=== PATIENT | male | born 1955 | race Caucasian/White ===

== ENCOUNTER → 2016-03-20 | Outpatient (CLI) | payer MEDICARE | LOC: M WUC 13:47 | PROVIDERS: ATTEND Urology | DX: C61 Malignant neoplasm of prostate (principal) ==

== ENCOUNTER → 2016-06-19 | Outpatient (CLI) | payer MEDICARE ==
[2016-06-19 13:34] LABS: MEAN CORPUSCULAR HEMOGLOBIN 28.5 pg (27.0-33.0); MEAN CORPUSCULAR HGB CONC 32.2 g/dl (32.0-36.5); MEAN CORPUSCULAR VOLUME 88.6 fl (80.0-96.0); RED CELL DISTRIBUTION WIDTH 12.8 % (11.5-14.5); WHITE BLOOD COUNT 6.2 K/mm3 (4.0-10.0)
[2016-06-19 14:09] LABS: ALBUMIN/GLOBULIN RATIO 1.25 (1.00-1.93); ALKALINE PHOSPHATASE 84 U/L (45-117); ALT/SGPT 18 U/L (12-78); ANION GAP 3 MEQ/L (8-16); AST/SGOT 20 U/L (15-37); BILIRUBIN,TOTAL 0.4 MG/DL (0.2-1.0); BLOOD UREA NITROGEN 16 MG/DL (7-18); CALCIUM LEVEL 8.9 MG/DL (8.8-10.2); CARBON DIOXIDE LEVEL 33 MEQ/L (21-32); CHLORIDE LEVEL 103 MEQ/L (98-107); CHOLESTEROL LEVEL 189 MG/DL (<200); CREATININE FOR GFR 1.12 MG/DL (0.70-1.30); GLOMERULAR FILTRATION RATE > 60.0 (>49); GLUCOSE, FASTING 90 MG/DL (80-110); POTASSIUM SERUM 4.3 MEQ/L (3.5-5.1); SODIUM LEVEL 139 MEQ/L (136-145); TOTAL PROTEIN 7.2 GM/DL (6.4-8.2); TRIGLYCERIDES LEVEL 146 MG/DL (<150)
== END ==
LOC: M WUC 09:29
PROVIDERS: ATTEND Family Medicine
DX: G31.83 Neurocognitive disorder with Lewy bodies (principal); E78.2 Mixed hyperlipidemia

== ENCOUNTER 2016-10-08 15:22 | Inpatient (IN) | payer MEDICARE, MEDICAID ==
[~2016-10-08] VITALS: Ht 188 cm; Wt 73.1 kg
[2016-10-08] MEDS ORDERED: CARV3.12 (15:35)
[2016-10-08] MEDS ORDERED: MEMA1TAB2 (15:35)
[2016-10-08] MEDS ORDERED: QUET1TAB8 (15:35)
[2016-10-08] MEDS ORDERED: PRAV40TA2 (15:35)
[2016-10-08] MEDS ORDERED: CLOP75TA2 (15:35)
[2016-10-08] MEDS ORDERED: LAMO100T (15:35)
[2016-10-08] MEDS ORDERED: ARIP1TAB4 (15:35)
[2016-10-08] MEDS ORDERED: MIRT45TA (15:35)
[2016-10-08] MEDS ORDERED: DONEPEZIL (15:35)
[2016-10-08 16:25] LABS: MEAN CORPUSCULAR HEMOGLOBIN 30.6 pg (27.0-33.0); MEAN CORPUSCULAR HGB CONC 34.7 g/dl (32.0-36.5); MEAN CORPUSCULAR VOLUME 88.1 fl (80.0-96.0); RED CELL DISTRIBUTION WIDTH 12.9 % (11.5-14.5); WHITE BLOOD COUNT 6.9 K/mm3 (4.0-10.0)
[2016-10-08 16:53] LABS: ALBUMIN 4.1 GM/DL (3.2-5.2); ALBUMIN/GLOBULIN RATIO 1.46 (1.00-1.93); ALKALINE PHOSPHATASE 73 U/L (45-117); ALT/SGPT 17 U/L (12-78); ANION GAP 8 MEQ/L (8-16); AST/SGOT 14 U/L (15-37); BILIRUBIN,DIRECT < 0.1 MG/DL (0.0-0.2); BILIRUBIN,TOTAL 0.4 MG/DL (0.2-1.0); BLOOD UREA NITROGEN 17 MG/DL (7-18); CARBON DIOXIDE LEVEL 31 MEQ/L (21-32); CHLORIDE LEVEL 105 MEQ/L (98-107); GLOMERULAR FILTRATION RATE > 60.0 (>49); GLUCOSE, FASTING 116 MG/DL (80-110); POTASSIUM SERUM 4.1 MEQ/L (3.5-5.1); SODIUM LEVEL 144 MEQ/L (136-145); TOTAL PROTEIN 6.9 GM/DL (6.4-8.2)
--- NOTE | 2016-10-08 18:16 | ECGEPIP ---
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
[2016-10-08] MEDS ORDERED: NAME10TA PO (18:49)
[2016-10-08] MEDS ORDERED: MIRT45TA PO (18:49)
[2016-10-08] MEDS ORDERED: ASPI81TA24 PO (18:49)
[2016-10-08] MEDS ORDERED: PRAV40TA2 PO (18:49)
[2016-10-08] MEDS ORDERED: VITMTA PO (18:49)
[2016-10-08] MEDS ORDERED: ABIL1TAB13 PO (18:49)
[2016-10-08] MEDS ORDERED: DONETAB6 PO (18:49)
[2016-10-08] MEDS ORDERED: LAMI1TAB7 PO (18:49)
[2016-10-08] MEDS ORDERED: SERO1TAB PO (18:49)
[2016-10-08] MEDS ORDERED: CARV3.12 PO (18:49)
[2016-10-08] MEDS ORDERED: PLAV1TAB2 PO (18:49)
[2016-10-08 23:55] VITALS: BP 137/82
[2016-10-09] MEDS: DONEPEZIL 5 MG TAB PO SCH ×2 (00:59→20:41)
[2016-10-09] MEDS: MIRTAZAPINE 15 MG TAB PO SCH ×2 (00:59→20:42)
[2016-10-09] MEDS: PRAVASTATIN 20 MG TAB PO SCH ×2 (01:00→20:44)
[2016-10-09] MEDS: lamoTRIgine 100MG TAB PO SCH ×3 (01:00→20:44)
[2016-10-09] MEDS: MEMANTINE 5MG TABLET (NAMENDA) PO SCH ×3 (01:00→20:42)
[2016-10-09] MEDS: CLOPIDOGREL 75 MG TAB PO SCH ×2 (01:01→20:44)
[2016-10-09] MEDS: CARVedilol 3.125 MG TAB PO SCH ×3 (01:01→20:44)
[2016-10-09] MEDS: QUEtiapine FUMARATE 100 MG TAB PO SCH ×2 (01:02→20:42)
[2016-10-09] MEDS: ARIPiprazole 2 MG TAB PO SCH ×2 (01:18→20:41)
--- NOTE | 2016-10-09 06:43 | REP ---
CHEST X-RAY PA AND LATERAL: 10/08/2016. Comparison: Portable chest 08/26/2014, 02/12/2011. Clinical history: Altered mental status. Findings. There is a dextrorotatory curve of the thoracic spine. The lungs are well inflated without infiltrate or effusion. No dense consolidation or parenchymal mass. Some minor apical pleuroparenchymal scarring on the right. Heart not enlarged. No vascular redistribution or edema. The aorta is tortuous following the curve of the thoracic spine but without aneurysm. Airway intact. Bones without acute compression deformity of destructive lesion suggested. No free air. Impression: 1. Dextrorotatory curvature of the spine without acute cardiopulmonary change. Signed by Alirio Palmer MD 10/09/2016 07:57 A
[2016-10-09] MEDS: MULTIVITAMINS/MINERALS THERAP 1 TAB PO SCH (09:05)
[2016-10-09] MEDS: ASPIRIN 81 MG ENTERIC TAB PO SCH (09:05)
--- NOTE | 2016-10-09 10:45 | REPUSA ---
CLINICAL HISTORY: AMS TECHNIQUE: Multiple axial CT images were obtained through the brain without IV contrast material. COMMENTS: There is normal configuration of sella turcica. There are no intra or extra-axial collections. There is no mass effect or midline shift. There is no evidence of hematoma formation. No hydrocephalus is p resent. The ventricles are symmetrical. No abnormal calcifications are present. There is diffuse age-appropriate cerebellar and cerebral atrophy with proportionally dilated ventricl es and cortical sulci. There are bilateral periventricular and subcortical white matter hypolucencies compatible with mild c hronic microvascular disease. Otherwise, no significant focal abnormalities are seen either in the posterior fossa or supratentoria l compartment. IMPRESSION: 1. Age-appropriate cerebellar and cerebral atrophy. 2. Mild chronic microvascular disease. 3. No evidence of acute intracranial pathology. Thank you for your kind referral of this patient.
[2016-10-09] MEDS: LORazepam 2 MG TAB PO PRN (16:02)
[2016-10-09 22:00] VITALS: BP 126/77
--- NOTE | 2016-10-10 00:35 | IPNPDOC ---
Subjective Date Seen The patient was seen on 10/09/16. Subjective Chief Complaint/HPI The patient is a 60-year-old male admitted with a reason for visit of E. Constitutional: Reports: Malaise, Denies: Fever ENT: Denies: Head Aches Pulmonary: Denies: Dyspnea, Cough Cardiovascular: Denies: Chest Pain Gastrointestinal: Denies: Nausea, Vomiting, Abdominal Pain, Diarrhea, Constipation Objective Physical Examination General Exam: Positive: Alert, No Acute Distress, Negative: Cooperative Eye Exam: Positive: Conjunctiva & lids normal, EOMI ENT Exam: Positive: Atraumatic Chest Exam: Positive: Clear to auscultation, Normal air movement Heart Exam: Positive: Rate Normal, Regular Rhythm Abdomen Exam: Positive: Normal bowel sounds Skin Exam: Negative: Breakdown Neuro Exam: Positive: Normal Gait, Normal Speech Psych Exam: Negative: Mental status NL, Mood NL Assessment /Plan Problems (1) Lewy body dementia with behavioral disturbance Status: Chronic Problem Text: Worsening behaviors at home lead to an unsafe home situation. Patient likely will require placement. Currently has Ativan ordered prn. (2) Hospital admission due to social situation Status: Acute Problem Text: Admitted for unsafe home situation. (3) Coronary artery disease Status: Chronic Problem Text: Continue home statin/Plavix/beta matt. Plan/VTE VTE Prophylaxis Ordered?: Yes VS, I&O, 24H, Fishbone Vital Signs/I&O Vital Signs Date Time Temp Pulse Resp B/P (MAP) Pulse Ox O2 Delivery O2 Flow Rate FiO2 10/09/16 22:00 97.5 68 18 126/77 (93) 98 Room Air I&O- Last 24 Hours up to 6 AM 10/10/16 06:00 Intake Total 120 ml Output Total 0 ml Balance 120 ml Laboratory Data Microbiology Microbiology 10/08/16 Urine Culture - Final, Complete DELL LIU DO Oct 10, 2016 00:35
[2016-10-10] MEDS: LORazepam 2 MG/ML VIAL (J2060) IM PRN ×2 (05:58→15:09)
[2016-10-10 06:00] VITALS: BP 115/65
[2016-10-10] MEDS: ASPIRIN 81 MG ENTERIC TAB PO SCH (10:26)
[2016-10-10] MEDS: CARVedilol 3.125 MG TAB PO SCH ×2 (10:26→21:43)
[2016-10-10] MEDS: lamoTRIgine 100MG TAB PO SCH ×2 (10:27→21:38)
[2016-10-10] MEDS: MEMANTINE 5MG TABLET (NAMENDA) PO SCH ×2 (10:27→21:39)
[2016-10-10] MEDS: MULTIVITAMINS/MINERALS THERAP 1 TAB PO SCH (10:27)
[2016-10-10] MEDS: ARIPiprazole 2 MG TAB PO SCH (21:37)
[2016-10-10] MEDS: CLOPIDOGREL 75 MG TAB PO SCH (21:37)
[2016-10-10] MEDS: MIRTAZAPINE 15 MG TAB PO SCH (21:37)
[2016-10-10] MEDS: QUEtiapine FUMARATE 100 MG TAB PO SCH (21:38)
[2016-10-10] MEDS: PRAVASTATIN 20 MG TAB PO SCH (21:39)
[2016-10-10] MEDS: DONEPEZIL 5 MG TAB PO SCH (21:39)
[2016-10-10 21:49] VITALS: BP 125/80
[2016-10-11] VITALS (11 sets, daily range): BP systolic 104–140; BP diastolic 59–79
[2016-10-11] MEDS: LORazepam 2 MG/ML VIAL (J2060) IM PRN (00:45)
--- NOTE | 2016-10-11 00:59 | IPNPDOC ---
Subjective Date Seen The patient was seen on 10/10/16. Subjective Chief Complaint/HPI The patient is a 60-year-old male admitted with a reason for visit of MHE. Events since last encounter Mr. Gomes was resting in bed when I saw him late this morning. His sitter states that he had been resting since she began her shift. He had been restless the night before, and received some of his prn medications. General: Reports: ROS Unobtainable Objective Physical Examination General Exam: Positive: Alert, No Acute Distress, Negative: Cooperative Eye Exam: Positive: Conjunctiva & lids normal, EOMI ENT Exam: Positive: Atraumatic Chest Exam: Positive: Clear to auscultation, Normal air movement Heart Exam: Positive: Rate Normal, Regular Rhythm Abdomen Exam: Positive: Normal bowel sounds Skin Exam: Negative: Breakdown Neuro Exam: Positive: Normal Gait, Normal Speech Psych Exam: Negative: Mental status NL, Mood NL Assessment /Plan Problems (1) Lewy body dementia with behavioral disturbance Status: Chronic Problem Text: Worsening behaviors at home lead to an unsafe home situation. Patient likely will require placement. Currently has Ativan ordered prn. (2) Hospital admission due to social situation Status: Acute Problem Text: Admitted for unsafe home situation. (3) Coronary artery disease Status: Chronic Problem Text: Continue home statin/Plavix/beta matt. Plan/VTE VTE Prophylaxis Ordered?: Yes VS, I&O, 24H, Fishbone Vital Signs/I&O Vital Signs Date Time Temp Pulse Resp B/P (MAP) Pulse Ox O2 Delivery O2 Flow Rate FiO2 10/10/16 21:49 98.9 80 16 125/80 (95) 96 Room Air I&O- Last 24 Hours up to 6 AM 10/11/16 05:59 Intake Total 390 ml Output Total 425 ml Balance -35 ml Laboratory Data Microbiology Microbiology 10/08/16 Urine Culture - Final, Complete DELL LIU DO Oct 11, 2016 00:59
[2016-10-11] MEDS ORDERED: HALOPERIDOL 5 MG/ML VIAL (J1630) As Ordered ONE (01:02)
[2016-10-11] MEDS ORDERED: HALOPERIDOL 5 MG/ML VIAL (J1630) IV STA (01:03)
[2016-10-11] MEDS: MULTIVITAMINS/MINERALS THERAP 1 TAB PO SCH (10:53)
[2016-10-11] MEDS: MEMANTINE 5MG TABLET (NAMENDA) PO SCH ×2 (10:53→22:55)
[2016-10-11] MEDS: lamoTRIgine 100MG TAB PO SCH ×2 (10:53→22:56)
[2016-10-11] MEDS: ASPIRIN 81 MG ENTERIC TAB PO SCH (10:54)
[2016-10-11] MEDS: CARVedilol 3.125 MG TAB PO SCH ×2 (10:54→22:58)
[2016-10-11] MEDS: LORazepam 2 MG TAB PO PRN (19:18)
[2016-10-11] MEDS: HALOPERIDOL 1 MG TAB PO SCH (22:52)
[2016-10-11] MEDS: DONEPEZIL 5 MG TAB PO SCH (22:53)
[2016-10-11] MEDS: MIRTAZAPINE 15 MG TAB PO SCH (22:54)
[2016-10-11] MEDS: ARIPiprazole 2 MG TAB PO SCH (22:55)
[2016-10-11] MEDS: PRAVASTATIN 20 MG TAB PO SCH (22:55)
[2016-10-11] MEDS: CLOPIDOGREL 75 MG TAB PO SCH (22:56)
[2016-10-12 00:32] VITALS: BP 120/71
--- NOTE | 2016-10-12 00:54 | IPNPDOC ---
Subjective Date Seen The patient was seen on 10/11/16. Subjective Chief Complaint/HPI The patient is a 60-year-old male admitted with a reason for visit of MHE. Events since last encounter Patient resting comfortably in bed at this time. Per report, he became agitated and aggressive last night, and required physical restraint from multiple individuals after his prn medications were insufficient to calm him. He responds to touch but does not fully wake at this time. General: Reports: ROS Unobtainable Objective Physical Examination General Exam: Positive: No Acute Distress, Negative: Alert, Cooperative Eye Exam: Positive: Conjunctiva & lids normal, EOMI ENT Exam: Positive: Atraumatic Chest Exam: Positive: Clear to auscultation, Normal air movement Heart Exam: Positive: Rate Normal, Regular Rhythm Abdomen Exam: Positive: Normal bowel sounds Skin Exam: Negative: Breakdown Neuro Exam: Positive: Normal Gait, Normal Speech Psych Exam: Negative: Mental status NL, Mood NL Assessment /Plan Problems (1) Lewy body dementia with behavioral disturbance Status: Chronic Problem Text: 10/11 -- as patient became fairly sedated after Haldol last night, will switch antipsychotic to PO Haldol at a lower dose. Worsening behaviors at home lead to an unsafe home situation. Patient likely will require placement. Currently has Ativan ordered prn. (2) Hospital admission due to social situation Status: Acute Problem Text: Admitted for unsafe home situation. (3) Coronary artery disease Status: Chronic Problem Text: Continue home statin/Plavix/beta matt. Plan/VTE VTE Prophylaxis Ordered?: Yes VS, I&O, 24H, Fishbone Vital Signs/I&O Vital Signs Date Time Temp Pulse Resp B/P (MAP) Pulse Ox O2 Delivery O2 Flow Rate FiO2 10/12/16 00:32 98.1 69 15 120/71 (87) 98 Room Air I&O- Last 24 Hours up to 6 AM 10/12/16 06:00 Intake Total 920 ml Output Total 475 ml Balance 445 ml Laboratory Data Microbiology Microbiology 10/08/16 Urine Culture - Final, Complete DELL LIU DO Oct 12, 2016 00:54
[2016-10-12 06:00] VITALS: BP 142/88
[2016-10-12] MEDS: lamoTRIgine 100MG TAB PO SCH ×2 (08:06→20:07)
[2016-10-12] MEDS: ASPIRIN 81 MG ENTERIC TAB PO SCH (08:06)
[2016-10-12] MEDS: CARVedilol 3.125 MG TAB PO SCH ×2 (08:06→20:07)
[2016-10-12] MEDS: MEMANTINE 5MG TABLET (NAMENDA) PO SCH ×2 (08:06→20:08)
[2016-10-12] MEDS: MULTIVITAMINS/MINERALS THERAP 1 TAB PO SCH (08:06)
[2016-10-12] MEDS: HALOPERIDOL 1 MG TAB PO SCH ×2 (08:07→20:08)
[2016-10-12] MEDS: ARIPiprazole 2 MG TAB PO SCH (20:06)
[2016-10-12] MEDS: MIRTAZAPINE 15 MG TAB PO SCH (20:07)
[2016-10-12] MEDS: DONEPEZIL 5 MG TAB PO SCH (20:07)
[2016-10-12] MEDS: PRAVASTATIN 20 MG TAB PO SCH (20:08)
[2016-10-12] MEDS: CLOPIDOGREL 75 MG TAB PO SCH (20:08)
--- NOTE | 2016-10-13 02:08 | IPNPDOC ---
Subjective Date Seen The patient was seen on 10/12/16. Subjective Chief Complaint/HPI The patient is a 60-year-old male admitted with a reason for visit of MHE. Events since last encounter Doing better on Haldol. Patient remains restless and wandering the halls, but no violent interactions. General: Reports: ROS Unobtainable Objective Physical Examination General Exam: Positive: No Acute Distress, Negative: Alert, Cooperative Eye Exam: Positive: Conjunctiva & lids normal, EOMI ENT Exam: Positive: Atraumatic Chest Exam: Positive: Clear to auscultation, Normal air movement Heart Exam: Positive: Rate Normal, Regular Rhythm Abdomen Exam: Positive: Normal bowel sounds Skin Exam: Negative: Breakdown Neuro Exam: Positive: Normal Gait, Normal Speech Psych Exam: Negative: Mental status NL, Mood NL Assessment /Plan Problems (1) Lewy body dementia with behavioral disturbance Status: Chronic Problem Text: 10/12 -- per report, fewer behavioral problems today. Patient does not want to remain clothed, but was not violent. Continue current medication regimen. 10/11 -- as patient became fairly sedated after Haldol last night, will switch antipsychotic to PO Haldol at a lower dose. Worsening behaviors at home lead to an unsafe home situation. Patient likely will require placement. Currently has Ativan ordered prn. (2) Hospital admission due to social situation Status: Acute Problem Text: Admitted for unsafe home situation. (3) Coronary artery disease Status: Chronic Problem Text: Continue home statin/Plavix/beta matt. Plan/VTE VTE Prophylaxis Ordered?: Yes VS, I&O, 24H, Fishbone Vital Signs/I&O Vital Signs Date Time Temp Pulse Resp B/P (MAP) Pulse Ox O2 Delivery O2 Flow Rate FiO2 10/12/16 20:07 82 125/79 10/12/16 06:00 98.6 17 97 Room Air I&O- Last 24 Hours up to 6 AM 10/13/16 06:00 Intake Total 1440 ml Output Total 0 ml Balance 1440 ml Laboratory Data Microbiology Microbiology 10/08/16 Urine Culture - Final, Complete DELL LIU DO Oct 13, 2016 02:08
[2016-10-13] MEDS: LORazepam 2 MG TAB PO PRN (04:38)
[2016-10-13 06:00] VITALS: BP 142/87
[2016-10-13] MEDS: HALOPERIDOL 1 MG TAB PO SCH ×2 (09:13→21:37)
[2016-10-13] MEDS: ASPIRIN 81 MG ENTERIC TAB PO SCH (09:13)
[2016-10-13] MEDS: MULTIVITAMINS/MINERALS THERAP 1 TAB PO SCH (09:13)
[2016-10-13] MEDS: MEMANTINE 5MG TABLET (NAMENDA) PO SCH ×2 (09:13→21:37)
[2016-10-13] MEDS: lamoTRIgine 100MG TAB PO SCH ×2 (09:13→21:37)
[2016-10-13] MEDS: CARVedilol 3.125 MG TAB PO SCH ×2 (09:14→21:45)
[2016-10-13] MEDS: CLOPIDOGREL 75 MG TAB PO SCH (21:37)
[2016-10-13] MEDS: ARIPiprazole 2 MG TAB PO SCH (21:37)
[2016-10-13] MEDS: PRAVASTATIN 20 MG TAB PO SCH (21:37)
[2016-10-13] MEDS: MIRTAZAPINE 15 MG TAB PO SCH (21:37)
[2016-10-13] MEDS: DONEPEZIL 5 MG TAB PO SCH (21:38)
[2016-10-14] MEDS: LORazepam 2 MG/ML VIAL (J2060) IM PRN ×2 (01:11→23:47)
[2016-10-14] MEDS: ACETAMINOPHEN TAB 650MG DOSE (2X325MG) PO PRN (05:47)
[2016-10-14 06:00] VITALS: BP 130/77
[2016-10-14] MEDS: ASPIRIN 81 MG ENTERIC TAB PO SCH (08:58)
[2016-10-14] MEDS: MEMANTINE 5MG TABLET (NAMENDA) PO SCH ×2 (08:59→20:11)
[2016-10-14] MEDS: HALOPERIDOL 1 MG TAB PO SCH ×2 (08:59→20:12)
[2016-10-14] MEDS: CARVedilol 3.125 MG TAB PO SCH ×2 (08:59→20:13)
[2016-10-14] MEDS: MULTIVITAMINS/MINERALS THERAP 1 TAB PO SCH (08:59)
[2016-10-14] MEDS: lamoTRIgine 100MG TAB PO SCH ×2 (08:59→20:12)
[2016-10-14] MEDS: ARIPiprazole 2 MG TAB PO SCH (20:11)
[2016-10-14] MEDS: CLOPIDOGREL 75 MG TAB PO SCH (20:11)
[2016-10-14] MEDS: PRAVASTATIN 20 MG TAB PO SCH (20:12)
[2016-10-14] MEDS: MIRTAZAPINE 15 MG TAB PO SCH (20:12)
[2016-10-14] MEDS: DONEPEZIL 5 MG TAB PO SCH (20:12)
[2016-10-14] MEDS: HALOPERIDOL 5 MG/ML VIAL (J1630) IM PRN (23:47)
[2016-10-15 06:00] VITALS: BP 116/62
[2016-10-15] MEDS: MEMANTINE 5MG TABLET (NAMENDA) PO SCH ×2 (10:03→20:02)
[2016-10-15] MEDS: CARVedilol 3.125 MG TAB PO SCH ×2 (10:03→20:04)
[2016-10-15] MEDS: MULTIVITAMINS/MINERALS THERAP 1 TAB PO SCH (10:04)
[2016-10-15] MEDS: HALOPERIDOL 1 MG TAB PO SCH ×2 (10:04→20:04)
[2016-10-15] MEDS: ASPIRIN 81 MG ENTERIC TAB PO SCH (10:04)
[2016-10-15] MEDS: lamoTRIgine 100MG TAB PO SCH ×2 (10:05→20:04)
[2016-10-15] MEDS: PRAVASTATIN 20 MG TAB PO SCH (20:01)
[2016-10-15] MEDS: CLOPIDOGREL 75 MG TAB PO SCH (20:02)
[2016-10-15] MEDS: DONEPEZIL 5 MG TAB PO SCH (20:02)
[2016-10-15] MEDS: ARIPiprazole 2 MG TAB PO SCH (20:04)
[2016-10-15] MEDS: MIRTAZAPINE 15 MG TAB PO SCH (20:04)
[2016-10-15] MEDS: LORazepam 2 MG/ML VIAL (J2060) IM PRN (22:26)
[2016-10-15] MEDS: HALOPERIDOL 5 MG/ML VIAL (J1630) IM PRN (22:35)
[2016-10-16 06:00] VITALS: BP 131/79
[2016-10-16] MEDS: lamoTRIgine 100MG TAB PO SCH ×2 (10:07→21:41)
[2016-10-16] MEDS: CARVedilol 3.125 MG TAB PO SCH ×2 (10:07→21:56)
[2016-10-16] MEDS: HALOPERIDOL 1 MG TAB PO SCH ×2 (10:07→21:43)
[2016-10-16] MEDS: MEMANTINE 5MG TABLET (NAMENDA) PO SCH ×2 (10:07→21:42)
[2016-10-16] MEDS: MULTIVITAMINS/MINERALS THERAP 1 TAB PO SCH (10:07)
[2016-10-16] MEDS: ASPIRIN 81 MG ENTERIC TAB PO SCH (10:08)
[2016-10-16] MEDS: LORazepam 2 MG TAB PO PRN (16:59)
[2016-10-16] MEDS: HALOPERIDOL 5 MG/ML VIAL (J1630) IM PRN ×2 (18:57→23:40)
[2016-10-16] MEDS: diphenhydrAMINE INJ 50MG/ML VIAL (J1200) IM PRN (19:12)
[2016-10-16] MEDS: MIRTAZAPINE 15 MG TAB PO SCH (21:41)
[2016-10-16] MEDS: DONEPEZIL 5 MG TAB PO SCH (21:42)
[2016-10-16] MEDS: PRAVASTATIN 20 MG TAB PO SCH (21:42)
[2016-10-16] MEDS: CLOPIDOGREL 75 MG TAB PO SCH (21:42)
[2016-10-16] MEDS: ARIPiprazole 2 MG TAB PO SCH (21:42)
[2016-10-16 23:15] VITALS: BP 146/82
[2016-10-16] MEDS: LORazepam 2 MG/ML VIAL (J2060) IM PRN (23:39)
[2016-10-17 06:00] VITALS: BP 129/80
[2016-10-17] MEDS: HALOPERIDOL 5 MG/ML VIAL (J1630) IM PRN (07:02)
--- NOTE | 2016-10-17 08:33 | IPNPDOC ---
Subjective Date Seen The patient was seen on 10/17/16. Subjective Chief Complaint/HPI The patient is a 60-year-old male admitted with a reason for visit of MHE. Events since last encounter Continuing with aggressive behaviors in the evening hours. General: Reports: ROS Unobtainable Objective Physical Examination General Exam: Positive: No Acute Distress, Negative: Alert, Cooperative Eye Exam: Positive: Conjunctiva & lids normal, EOMI ENT Exam: Positive: Atraumatic Chest Exam: Positive: Clear to auscultation, Normal air movement Heart Exam: Positive: Rate Normal, Regular Rhythm Abdomen Exam: Positive: Normal bowel sounds Skin Exam: Negative: Breakdown Neuro Exam: Positive: Normal Gait, Normal Speech Psych Exam: Negative: Mental status NL, Mood NL Assessment /Plan Problems (1) Lewy body dementia with behavioral disturbance Status: Chronic Problem Text: 10/18/16 more ataxic with seroquel 100 so dose reduced to 50. If behavior not adequately controlled with 50 then will stop this agent and increase abilify to 5mg . 10/17/16: add on Seroquel 100 mg po daily at 1800. 10/12 -- per report, fewer behavioral problems today. Patient does not want to remain clothed, but was not violent. Continue current medication regimen. 10/11 -- as patient became fairly sedated after Haldol last night, will switch antipsychotic to PO Haldol at a lower dose. Worsening behaviors at home lead to an unsafe home situation. Patient likely will require placement. Currently has Ativan ordered prn. (2) Hospital admission due to social situation Status: Acute Problem Text: Admitted for unsafe home situation. (3) Coronary artery disease Status: Chronic Problem Text: Continue home statin/Plavix/beta matt. Plan/VTE VTE Prophylaxis Ordered?: Yes VS, I&O, 24H, Fishbone Vital Signs/I&O Vital Signs Date Time Temp Pulse Resp B/P (MAP) Pulse Ox O2 Delivery O2 Flow Rate FiO2 10/17/16 06:00 97.4 80 16 129/80 (96) 96 Room Air I&O- Last 24 Hours up to 6 AM 10/17/16 06:00 Intake Total 810 ml Output Total 0 ml Balance 810 ml Laboratory Data Microbiology Microbiology 10/08/16 Urine Culture - Final, Complete Krysta Dixon MANAGER [employer] Oct 17, 2016 08:32 Kameron Mittal MD Oct 18, 2016 16:31
[2016-10-17] MEDS: MIRALAX *UNIT DOSE* 17GM PACKET PO PRN (10:26)
[2016-10-17] MEDS: HALOPERIDOL 1 MG TAB PO SCH ×2 (10:26→22:02)
[2016-10-17] MEDS: lamoTRIgine 100MG TAB PO SCH ×2 (10:27→22:02)
[2016-10-17] MEDS: ASPIRIN 81 MG ENTERIC TAB PO SCH (10:27)
[2016-10-17] MEDS: MULTIVITAMINS/MINERALS THERAP 1 TAB PO SCH (10:27)
[2016-10-17] MEDS: CARVedilol 3.125 MG TAB PO SCH ×2 (10:28→22:04)
[2016-10-17] MEDS: MEMANTINE 5MG TABLET (NAMENDA) PO SCH ×2 (10:28→22:03)
[2016-10-17] MEDS: QUEtiapine FUMARATE 100 MG TAB PO SCH (17:13)
[2016-10-17] MEDS: LORazepam 2 MG TAB PO PRN ×2 (17:15→22:02)
[2016-10-17] MEDS: CLOPIDOGREL 75 MG TAB PO SCH (22:02)
[2016-10-17] MEDS: MIRTAZAPINE 15 MG TAB PO SCH (22:02)
[2016-10-17] MEDS: ARIPiprazole 2 MG TAB PO SCH (22:02)
[2016-10-17] MEDS: DONEPEZIL 5 MG TAB PO SCH (22:03)
[2016-10-17] MEDS: PRAVASTATIN 20 MG TAB PO SCH (22:03)
[2016-10-18 06:00] VITALS: BP 129/81
[2016-10-18] MEDS: ASPIRIN 81 MG ENTERIC TAB PO SCH (10:00)
[2016-10-18] MEDS: MULTIVITAMINS/MINERALS THERAP 1 TAB PO SCH (10:00)
[2016-10-18] MEDS: HALOPERIDOL 1 MG TAB PO SCH ×2 (10:00→20:00)
[2016-10-18] MEDS: lamoTRIgine 100MG TAB PO SCH ×2 (10:00→20:00)
[2016-10-18] MEDS: CARVedilol 3.125 MG TAB PO SCH ×2 (10:00→20:09)
[2016-10-18] MEDS: MEMANTINE 5MG TABLET (NAMENDA) PO SCH ×2 (10:00→20:00)
[2016-10-18] MEDS: QUEtiapine FUMARATE 100 MG TAB PO SCH (18:32)
[2016-10-18] MEDS: ARIPiprazole 2 MG TAB PO SCH (20:00)
[2016-10-18] MEDS: DONEPEZIL 5 MG TAB PO SCH (20:00)
[2016-10-18] MEDS: CLOPIDOGREL 75 MG TAB PO SCH (20:00)
[2016-10-18] MEDS: MIRTAZAPINE 15 MG TAB PO SCH (20:00)
[2016-10-18] MEDS: PRAVASTATIN 20 MG TAB PO SCH (20:00)
[2016-10-18] MEDS: LORazepam 2 MG TAB PO PRN (20:09)
[2016-10-18 22:00] VITALS: BP 139/84
[2016-10-18] MEDS: HALOPERIDOL 5 MG/ML VIAL (J1630) IM PRN (23:29)
[2016-10-19] MEDS: LORazepam 2 MG/ML VIAL (J2060) IM PRN (02:16)
[2016-10-19] MEDS: HALOPERIDOL 5 MG/ML VIAL (J1630) IM PRN ×2 (02:16→21:03)
[2016-10-19 06:00] VITALS: BP 140/75
[2016-10-19] MEDS: HALOPERIDOL 1 MG TAB PO SCH ×2 (09:00→20:06)
[2016-10-19] MEDS: MEMANTINE 5MG TABLET (NAMENDA) PO SCH ×2 (09:00→20:07)
[2016-10-19] MEDS: ASPIRIN 81 MG ENTERIC TAB PO SCH (09:00)
[2016-10-19] MEDS: CARVedilol 3.125 MG TAB PO SCH ×2 (09:00→21:03)
[2016-10-19] MEDS: MULTIVITAMINS/MINERALS THERAP 1 TAB PO SCH (09:00)
[2016-10-19] MEDS: lamoTRIgine 100MG TAB PO SCH ×2 (09:00→20:07)
--- NOTE | 2016-10-19 14:33 | IPNPDOC ---
Subjective Date Seen The patient was seen on 10/19/16. Subjective Chief Complaint/HPI The patient is a 60-year-old male admitted with a reason for visit of E. General: Reports: ROS Unobtainable Objective Physical Examination General Exam: Positive: No Acute Distress, Negative: Alert, Cooperative Eye Exam: Positive: Conjunctiva & lids normal, EOMI ENT Exam: Positive: Atraumatic Heart Exam: Positive: Rate Normal, Regular Rhythm Skin Exam: Negative: Breakdown Neuro Exam: Positive: Normal Speech (minimal fragmentary utterances. leans forwards as he moves about the unit. difficult time settling. seems driven to keep pacing about), Negative: Normal Gait (short steps, forward lean, en bloc turns.) Psych Exam: Negative: Mental status NL, Mood NL Assessment /Plan Problems (1) Lewy body dementia with behavioral disturbance Status: Chronic Problem Text: 10/19/17. seroquel stopped, will increase abilify as noted below. 10/18/16 more ataxic with seroquel 100 so dose reduced to 50. If behavior not adequately controlled with 50 then will stop this agent and increase abilify to 5mg . 10/17/16: add on Seroquel 100 mg po daily at 1800. 10/12 -- per report, fewer behavioral problems today. Patient does not want to remain clothed, but was not violent. Continue current medication regimen. 10/11 -- as patient became fairly sedated after Haldol last night, will switch antipsychotic to PO Haldol at a lower dose. Worsening behaviors at home lead to an unsafe home situation. Patient likely will require placement. Currently has Ativan ordered prn. (2) Hospital admission due to social situation Status: Acute Problem Text: Admitted for unsafe home situation. (3) Coronary artery disease Status: Chronic Problem Text: Continue home statin/Plavix/beta matt. Plan/VTE VTE Prophylaxis Ordered?: Yes VS, I&O, 24H, Fishbone Vital Signs/I&O Vital Signs Date Time Temp Pulse Resp B/P (MAP) Pulse Ox O2 Delivery O2 Flow Rate FiO2 10/19/16 09:15 Room Air 10/19/16 09:00 84 121/63 10/19/16 06:00 98.8 16 100 I&O- Last 24 Hours up to 6 AM 10/19/16 06:00 Intake Total 1000 ml Output Total 0 ml Balance 1000 ml Kameron Mittal MD Oct 19, 2016 14:33
[2016-10-19] MEDS: LORazepam 2 MG TAB PO PRN (20:06)
[2016-10-19] MEDS: MIRTAZAPINE 15 MG TAB PO SCH (20:07)
[2016-10-19] MEDS: CLOPIDOGREL 75 MG TAB PO SCH (20:07)
[2016-10-19] MEDS: PRAVASTATIN 20 MG TAB PO SCH (20:07)
[2016-10-19] MEDS: DONEPEZIL 5 MG TAB PO SCH (20:07)
[2016-10-19] MEDS ORDERED: LORazepam 2 MG/ML VIAL (J2060) IM ONE (21:15)
[2016-10-19] MEDS: diphenhydrAMINE INJ 50MG/ML VIAL (J1200) IM PRN (21:33)
[2016-10-20 06:00] VITALS: BP 126/72
[2016-10-20] MEDS: CARVedilol 3.125 MG TAB PO SCH ×2 (10:13→20:24)
[2016-10-20] MEDS: MULTIVITAMINS/MINERALS THERAP 1 TAB PO SCH (10:13)
[2016-10-20] MEDS: MEMANTINE 5MG TABLET (NAMENDA) PO SCH ×2 (10:13→20:25)
[2016-10-20] MEDS: ASPIRIN 81 MG ENTERIC TAB PO SCH (10:14)
[2016-10-20] MEDS: HALOPERIDOL 1 MG TAB PO SCH ×2 (10:14→20:25)
[2016-10-20] MEDS: lamoTRIgine 100MG TAB PO SCH ×2 (10:14→20:24)
[2016-10-20] MEDS: DONEPEZIL 5 MG TAB PO SCH (20:23)
[2016-10-20] MEDS: MIRTAZAPINE 15 MG TAB PO SCH (20:23)
[2016-10-20] MEDS: PRAVASTATIN 20 MG TAB PO SCH (20:23)
[2016-10-20] MEDS: CLOPIDOGREL 75 MG TAB PO SCH (20:25)
[2016-10-21] MEDS: ACETAMINOPHEN TAB 650MG DOSE (2X325MG) PO PRN ×2 (00:26→21:27)
[2016-10-21 06:00] VITALS: BP 130/78
[2016-10-21] MEDS: HALOPERIDOL 5 MG/ML VIAL (J1630) IM PRN (08:51)
[2016-10-21] MEDS: LORazepam 2 MG/ML VIAL (J2060) IM PRN (08:59)
[2016-10-21] MEDS: HALOPERIDOL 1 MG TAB PO SCH (09:00)
[2016-10-21] MEDS: MULTIVITAMINS/MINERALS THERAP 1 TAB PO SCH (09:00)
[2016-10-21] MEDS: diphenhydrAMINE INJ 50MG/ML VIAL (J1200) IM PRN (09:09)
[2016-10-21] MEDS: MEMANTINE 5MG TABLET (NAMENDA) PO SCH ×2 (09:30→21:27)
[2016-10-21] MEDS: lamoTRIgine 100MG TAB PO SCH ×2 (09:30→21:28)
[2016-10-21] MEDS: CARVedilol 3.125 MG TAB PO SCH ×2 (12:30→21:29)
[2016-10-21] MEDS: ASPIRIN 81 MG ENTERIC TAB PO SCH (12:30)
[2016-10-21] MEDS: DONEPEZIL 5 MG TAB PO SCH (21:26)
[2016-10-21] MEDS: MIRTAZAPINE 15 MG TAB PO SCH (21:27)
[2016-10-21] MEDS: PRAVASTATIN 20 MG TAB PO SCH (21:27)
[2016-10-21] MEDS: CLOPIDOGREL 75 MG TAB PO SCH (21:28)
[2016-10-22 06:00] VITALS: BP 147/79
[2016-10-22 06:21] LABS: MEAN CORPUSCULAR HEMOGLOBIN 29.9 pg (27.0-33.0); MEAN CORPUSCULAR HGB CONC 33.6 g/dl (32.0-36.5); MEAN CORPUSCULAR VOLUME 88.9 fl (80.0-96.0); RED CELL DISTRIBUTION WIDTH 13.2 % (11.5-14.5)
[2016-10-22 06:32] LABS: ALBUMIN 3.8 GM/DL (3.2-5.2); ALBUMIN/GLOBULIN RATIO 1.15 (1.00-1.93); ALKALINE PHOSPHATASE 74 U/L (45-117); ALT/SGPT 28 U/L (12-78); ANION GAP 7 MEQ/L (8-16); AST/SGOT 39 U/L (15-37); BILIRUBIN,TOTAL 0.3 MG/DL (0.2-1.0); BLOOD UREA NITROGEN 12 MG/DL (7-18); CALCIUM LEVEL 8.9 MG/DL (8.8-10.2); CARBON DIOXIDE LEVEL 30 MEQ/L (21-32); CHLORIDE LEVEL 108 MEQ/L (98-107); CREATININE FOR GFR 0.96 MG/DL (0.70-1.30); GLOMERULAR FILTRATION RATE > 60.0 (>49); GLUCOSE, FASTING 93 MG/DL (80-110); POTASSIUM SERUM 3.8 MEQ/L (3.5-5.1); SODIUM LEVEL 145 MEQ/L (136-145); TOTAL PROTEIN 7.1 GM/DL (6.4-8.2)
[2016-10-22] MEDS: lamoTRIgine 100MG TAB PO SCH ×2 (08:21→20:00)
[2016-10-22] MEDS: ASPIRIN 81 MG ENTERIC TAB PO SCH (08:21)
[2016-10-22] MEDS: HALOPERIDOL 1 MG TAB PO SCH (08:21)
[2016-10-22] MEDS: MEMANTINE 5MG TABLET (NAMENDA) PO SCH ×2 (08:21→20:00)
[2016-10-22] MEDS: CARVedilol 3.125 MG TAB PO SCH ×2 (08:21→20:01)
[2016-10-22] MEDS: PRAVASTATIN 20 MG TAB PO SCH (20:00)
[2016-10-22] MEDS: MIRTAZAPINE 15 MG TAB PO SCH (20:00)
[2016-10-22] MEDS: CLOPIDOGREL 75 MG TAB PO SCH (20:00)
[2016-10-22] MEDS: ACETAMINOPHEN TAB 650MG DOSE (2X325MG) PO PRN (20:02)
[2016-10-22] MEDS: DONEPEZIL 5 MG TAB PO SCH (20:03)
--- NOTE | 2016-10-22 22:09 | MHCR ---
DATE OF CONSULTATION: 10/20/2016 CHIEF COMPLAINT: Says is okay. SUBJECTIVE: He is 60 years old. He is . He lives with his . He has dementia with Lewy body, has been diagnosed with that. Has been seen by a neurologist as an outpatient, I understand, and this had been managed by his primary care as well, [facility]. He was admitted to the hospital about 12 days ago, as he has been increasingly agitated, violent at home. Police were called. He had been throwing things. Had left the gas stove on and was endangering himself as well as his . No effective history is obtained from the patient. He answers questions very briefly, mostly one word answers, but apparently coherently for the short time that he does answer. He has been on various medications and was on Seroquel, which was increased up to 100 mg daily, but apparently became ataxic with it. This was decreased and now recently discontinued and he has been started on Ability, which was initially at 2 mg, and today increased to 5 mg at night. Other medications include Lamictal 100 mg twice a day, I am not quite sure why he is getting that, Namenda (memantine)10 mg twice a day, donepezil (Aricept) 10 mg at night, Haldol 1 mg twice a day, Haldol 2 mg every 30 minutes as needed for agitation. He has required the intramuscular Haldol for the last six days or so, at least once a day and yesterday twice. Mirtazapine is at 45 mg at night. He is on diphenhydramine over here at 50 mg every 4 hours as needed for agitation, has refused it on two occasions. He is on lorazepam 2 mg by mouth every 4 hours as needed, has received it fairly frequently, at least once a day, and lorazepam 2 mg intramuscular for agitation, has received it yesterday and a few times previous to that, every few days. He has been noted to me agitated in the hospital, apparently gets agitated relatively suddenly in the evenings, has required intramuscular anti-agitation medication, as above, and has required to be restrained early in the stay. The anti-agitation medications have been helpful in the short-term. PAST MEDICAL HISTORY: Significant for various difficulties includin. Coronary artery disease, ejection fraction 45% 2. Myocardial infarction in the past. 3. High cholesterol. 4. History of adenocarcinoma of the prostate. MEDICATIONS: Please see the list above. He is also on: - Coreg - Plavix - Pravachol SOCIAL HISTORY: Lives with his . I am not sure of any other details at present. VITAL SIGNS: Blood pressure 152/69, pulse 80, temperature early on was 97.8. MENTAL STATUS EXAMINATION: He is neat, generally cooperative. He is sitting up in bed, fiddling with the newspaper and has also been eating ice cream. He is cooperative, though looks a bit puzzled. Answers questions briefly, logically, appears somewhat distracted as well, and then indicating that someone has been there and he suggested that it was a visitor. No fluctuation of consciousness. I was not able to formally test his orientation, but he was alert, was able to shift attention fairly adequately. Not sure if he is oriented to time or place. Judgment is poor, as is insight. ASSESSMENT: Major neurocognitive disorder with Lewy body (Lewy body dementia). Has behavioral disturbances with it. He has been increasingly agitated recently, has required being in hospital. Agitation has continued and in particular, in the evening, at night. He has visual hallucinations. He has been given various psychotropics, including those given as needed for the agitation. Some of them, for example the antipsychotics (Haldol), the benzodiazepines (Ativan), and the diphenhydramine may exacerbate his symptoms, including agitation. Streamlining them may be potentially beneficial. RECOMMENDATIONS: 1. Continue Abilify which has just been raised to 5 mg daily. 2. Decrease diphenhydramine to 25 mg intramuscular twice a day as needed for agitation, in fact, for severe agitation. 3. Decrease Haldol to 1 mg daily. 4. Decrease Ativan to 1 mg every 8 hours as needed for agitation, no more than 2 mg per day by mouth. 5. Decrease Ativan to 1 mg intramuscular every 12 hours as needed for agitation. Decreasing the above medications may possibly lessen the agitation, particularly the scheduled medications. This will still leave the possibility of using intramuscular anti-agitation medications if necessary, but at lower doses. Decreasing the psychotropics generally is preferable in dementia with Lewy body. I suggest optimizing the rest of his care, and exploring non-pharmacological ways of addressing the agitation. Continue to pursue placement if necessary. Thank you for the consult. If there are any questions, please call. The assessment took 30 minutes.
[2016-10-23] MEDS: ASPIRIN 81 MG ENTERIC TAB PO SCH (10:04)
[2016-10-23] MEDS: HALOPERIDOL 1 MG TAB PO SCH (10:04)
[2016-10-23] MEDS: lamoTRIgine 100MG TAB PO SCH ×2 (10:04→20:18)
[2016-10-23] MEDS: MEMANTINE 5MG TABLET (NAMENDA) PO SCH ×2 (10:05→20:19)
[2016-10-23] MEDS: CARVedilol 3.125 MG TAB PO SCH ×2 (10:05→20:19)
[2016-10-23] MEDS: LORazepam 2 MG TAB PO PRN (14:46)
[2016-10-23] MEDS: ACETAMINOPHEN TAB 650MG DOSE (2X325MG) PO PRN (14:47)
[2016-10-23] MEDS: PRAVASTATIN 20 MG TAB PO SCH (20:17)
[2016-10-23] MEDS: MIRTAZAPINE 15 MG TAB PO SCH (20:18)
[2016-10-23] MEDS: CLOPIDOGREL 75 MG TAB PO SCH (20:18)
[2016-10-23] MEDS: DONEPEZIL 5 MG TAB PO SCH (20:19)
[2016-10-23] MEDS: MIRALAX *UNIT DOSE* 17GM PACKET PO PRN (20:20)
[2016-10-24] MEDS: LORazepam 2 MG TAB PO PRN (00:13)
[2016-10-24 06:00] VITALS: BP 137/86
[2016-10-24] MEDS: MEMANTINE 5MG TABLET (NAMENDA) PO SCH ×2 (09:22→20:57)
[2016-10-24] MEDS: lamoTRIgine 100MG TAB PO SCH ×2 (09:27→20:56)
[2016-10-24] MEDS: CARVedilol 3.125 MG TAB PO SCH ×2 (09:27→21:03)
[2016-10-24] MEDS: ASPIRIN 81 MG ENTERIC TAB PO SCH (09:27)
[2016-10-24] MEDS: HALOPERIDOL 1 MG TAB PO SCH (09:28)
[2016-10-24] MEDS: MIRTAZAPINE 15 MG TAB PO SCH (20:55)
[2016-10-24] MEDS: PRAVASTATIN 20 MG TAB PO SCH (20:56)
[2016-10-24] MEDS: DONEPEZIL 5 MG TAB PO SCH (20:56)
[2016-10-24] MEDS: CLOPIDOGREL 75 MG TAB PO SCH (20:56)
[2016-10-24] MEDS: diphenhydrAMINE INJ 50MG/ML VIAL (J1200) IM PRN (23:55)
[2016-10-25] MEDS: LORazepam 2 MG/ML VIAL (J2060) IM PRN (00:45)
[2016-10-25] MEDS: HALOPERIDOL 5 MG/ML VIAL (J1630) IM PRN ×2 (00:47→01:13)
[2016-10-25] MEDS ORDERED: HALOPERIDOL 5 MG/ML VIAL (J1630) As Ordered ONE (01:04)
[2016-10-25 01:35] VITALS: BP 122/71
[2016-10-25 02:30] VITALS: BP 139/82
[2016-10-25 03:53] VITALS: BP 135/74
[2016-10-25] MEDS: MEMANTINE 5MG TABLET (NAMENDA) PO SCH ×2 (09:47→19:56)
[2016-10-25] MEDS: lamoTRIgine 100MG TAB PO SCH ×2 (09:47→20:00)
[2016-10-25] MEDS: ASPIRIN 81 MG ENTERIC TAB PO SCH (09:48)
[2016-10-25] MEDS: HALOPERIDOL 1 MG TAB PO SCH (09:48)
[2016-10-25] MEDS: CARVedilol 3.125 MG TAB PO SCH ×2 (09:50→19:57)
[2016-10-25] MEDS: MIRTAZAPINE 15 MG TAB PO SCH (19:54)
[2016-10-25] MEDS: CLOPIDOGREL 75 MG TAB PO SCH (19:57)
[2016-10-25] MEDS: DONEPEZIL 5 MG TAB PO SCH (19:59)
[2016-10-25] MEDS: PRAVASTATIN 20 MG TAB PO SCH (20:01)
[2016-10-26] MEDS: LORazepam 2 MG TAB PO PRN (00:23)
[2016-10-26 06:00] VITALS: BP 109/60
[2016-10-26] MEDS: ASPIRIN 81 MG ENTERIC TAB PO SCH (09:00)
[2016-10-26] MEDS: ASPIRIN 81 MG CHEW TABLET PO SCH (09:00)
[2016-10-26] MEDS: CARVedilol 3.125 MG TAB PO SCH ×2 (09:56→22:05)
[2016-10-26] MEDS: HALOPERIDOL 1 MG TAB PO SCH (09:57)
[2016-10-26] MEDS: MEMANTINE 5MG TABLET (NAMENDA) PO SCH ×2 (09:57→22:04)
[2016-10-26] MEDS: lamoTRIgine 100MG TAB PO SCH ×2 (09:57→22:05)
[2016-10-26] MEDS: PRAVASTATIN 20 MG TAB PO SCH (22:03)
[2016-10-26] MEDS: DONEPEZIL 5 MG TAB PO SCH (22:04)
[2016-10-26] MEDS: MIRTAZAPINE 15 MG TAB PO SCH (22:04)
[2016-10-26] MEDS: CLOPIDOGREL 75 MG TAB PO SCH (22:05)
[2016-10-26] MEDS: ACETAMINOPHEN TAB 650MG DOSE (2X325MG) PO PRN (22:45)
[2016-10-27 06:00] VITALS: BP 131/76
[2016-10-27] MEDS: HALOPERIDOL 1 MG TAB PO SCH (10:17)
[2016-10-27] MEDS: MEMANTINE 5MG TABLET (NAMENDA) PO SCH ×2 (10:17→22:11)
[2016-10-27] MEDS: CARVedilol 3.125 MG TAB PO SCH ×2 (10:17→22:12)
[2016-10-27] MEDS: lamoTRIgine 100MG TAB PO SCH ×2 (10:17→22:11)
[2016-10-27] MEDS: ASPIRIN 81 MG CHEW TABLET PO SCH (10:17)
--- NOTE | 2016-10-27 12:52 | IPNPDOC ---
Subjective Date Seen The patient was seen on 10/27/16. Subjective Chief Complaint/HPI The patient is a 60-year-old male admitted with a reason for visit of MHE. Events since last encounter Per sitter, patient c/o pain in his right great toe and does not want his sock or blankets on it, but it is not red or swollen. He has some BL le edema that he states cuases his ankles to hurt Constitutional: Denies: Chills, Fever Pulmonary: Denies: Dyspnea, Cough Cardiovascular: Denies: Chest Pain, Palpitations Gastrointestinal: Denies: Nausea, Vomiting, Abdominal Pain, Diarrhea, Constipation Musculoskeletal: Reports: Foot Pain Objective Physical Examination General Exam: Positive: Alert, Cooperative (Was walking around room upon my arrival but no agitation or distress. Sat down to be examined and followed commands.), No Acute Distress Eye Exam: Positive: Conjunctiva & lids normal, EOMI ENT Exam: Positive: Atraumatic Heart Exam: Positive: Rate Normal, Regular Rhythm Abdomen Exam: Positive: Soft, Negative: Tenderness Male Exam: Positive: Edema (1+ LE edema BL without erythema. Right great toe without swelling, erythema or obvious lesions - slight tenderness over MCP) Skin Exam: Negative: Breakdown Neuro Exam: Positive: Normal Speech (minimal fragmentary utterances. leans forwards as he moves about the unit. difficult time settling. seems driven to keep pacing about), Negative: Normal Gait (short steps, forward lean, en bloc turns.) Psych Exam: Negative: Mental status NL, Mood NL Assessment /Plan Problems (1) Lower extremity edema Status: Acute Problem Text: 10/27 - Likely related to being on his feet mush of the day. He c /o discomfort in his ankles and they are a little tender but without erythema. I will give a small dose of Lasix today and order TEDs, but I don't know if he will wear them He complained of right great toe pain, but I don't see any significant swelling redness or tenderness on exam to suggest something like acute gout or ingrown toenail - monitor symptoms (2) Lewy body dementia with behavioral disturbance Status: Chronic Problem Text: 10/27 - He has been started on Haldol daily with prn dosing as well due to episodes of severe agitation he seem sto be tolerating this and is awake ans walking in room today without agitation. 10/19/17. seroquel stopped, will increase abilify as noted below. 10/18/16 more ataxic with seroquel 100 so dose reduced to 50. If behavior not adequately controlled with 50 then will stop this agent and increase abilify to 5mg . 10/17/16: add on Seroquel 100 mg po daily at 1800. 10/12 -- per report, fewer behavioral problems today. Patient does not want to remain clothed, but was not violent. Continue current medication regimen. 10/11 -- as patient became fairly sedated after Haldol last night, will switch antipsychotic to PO Haldol at a lower dose. Worsening behaviors at home lead to an unsafe home situation. Patient likely will require placement. Currently has Ativan ordered prn. (3) Hospital admission due to social situation Status: Acute Problem Text: Admitted for unsafe home situation. (4) Coronary artery disease Status: Chronic Problem Text: Continue home statin/Plavix/beta matt. Plan/VTE VTE Prophylaxis Ordered?: Yes VS, I&O, 24H, Fishbone Vital Signs/I&O Vital Signs Date Time Temp Pulse Resp B/P (MAP) Pulse Ox O2 Delivery O2 Flow Rate FiO2 10/27/16 10:17 89 131/76 10/27/16 06:00 97.7 18 99 Room Air I&O- Last 24 Hours up to 6 AM 10/27/16 06:00 Intake Total 1500 ml Output Total 0 ml Balance 1500 ml JOVANNY DEIGO PA-C Oct 27, 2016 12:52
[2016-10-27] MEDS ORDERED: FUROSEMIDE 20 MG TAB PO ONE (13:00)
[2016-10-27 13:46] LABS: MEAN CORPUSCULAR HEMOGLOBIN 30.2 pg (27.0-33.0); MEAN CORPUSCULAR HGB CONC 33.8 g/dl (32.0-36.5); MEAN CORPUSCULAR VOLUME 89.2 fl (80.0-96.0); RED CELL DISTRIBUTION WIDTH 13.4 % (11.5-14.5)
[2016-10-27 14:03] LABS: ALBUMIN/GLOBULIN RATIO 1.33 (1.00-1.93); ALKALINE PHOSPHATASE 87 U/L (45-117); ALT/SGPT 24 U/L (12-78); ANION GAP 5 MEQ/L (8-16); AST/SGOT 40 U/L (15-37); BILIRUBIN,TOTAL 0.4 MG/DL (0.2-1.0); BLOOD UREA NITROGEN 19 MG/DL (7-18); CALCIUM LEVEL 8.9 MG/DL (8.8-10.2); CARBON DIOXIDE LEVEL 31 MEQ/L (21-32); CHLORIDE LEVEL 105 MEQ/L (98-107); CREATININE FOR GFR 0.99 MG/DL (0.70-1.30); GLOMERULAR FILTRATION RATE > 60.0 (>49); GLUCOSE, FASTING 149 MG/DL (80-110); SODIUM LEVEL 141 MEQ/L (136-145)
[2016-10-27] MEDS: CLOPIDOGREL 75 MG TAB PO SCH (22:10)
[2016-10-27] MEDS: DONEPEZIL 5 MG TAB PO SCH (22:10)
[2016-10-27] MEDS: MIRTAZAPINE 15 MG TAB PO SCH (22:11)
[2016-10-27] MEDS: PRAVASTATIN 20 MG TAB PO SCH (22:11)
[2016-10-28 06:00] VITALS: BP 169/79
[2016-10-28] MEDS: ASPIRIN 81 MG CHEW TABLET PO SCH (09:40)
[2016-10-28] MEDS: HALOPERIDOL 1 MG TAB PO SCH (09:40)
[2016-10-28] MEDS: lamoTRIgine 100MG TAB PO SCH ×2 (09:40→20:08)
[2016-10-28] MEDS: MEMANTINE 5MG TABLET (NAMENDA) PO SCH ×2 (09:40→20:11)
[2016-10-28] MEDS: CARVedilol 3.125 MG TAB PO SCH ×2 (09:41→20:11)
[2016-10-28] MEDS: PRAVASTATIN 20 MG TAB PO SCH (20:08)
[2016-10-28] MEDS: MIRTAZAPINE 15 MG TAB PO SCH (20:09)
[2016-10-28] MEDS: DONEPEZIL 5 MG TAB PO SCH (20:10)
[2016-10-28] MEDS: CLOPIDOGREL 75 MG TAB PO SCH (20:10)
[2016-10-29 06:00] VITALS: BP 147/95
[2016-10-29] MEDS: ASPIRIN 81 MG CHEW TABLET PO SCH (08:46)
[2016-10-29] MEDS: CARVedilol 3.125 MG TAB PO SCH ×2 (08:46→22:00)
[2016-10-29] MEDS: HALOPERIDOL 1 MG TAB PO SCH (08:47)
[2016-10-29] MEDS: MEMANTINE 5MG TABLET (NAMENDA) PO SCH ×2 (08:47→22:01)
[2016-10-29] MEDS: lamoTRIgine 100MG TAB PO SCH ×2 (08:47→22:00)
[2016-10-29] MEDS: DONEPEZIL 5 MG TAB PO SCH (21:59)
[2016-10-29] MEDS: MIRTAZAPINE 15 MG TAB PO SCH (21:59)
[2016-10-29] MEDS: CLOPIDOGREL 75 MG TAB PO SCH (21:59)
[2016-10-29] MEDS: PRAVASTATIN 20 MG TAB PO SCH (22:00)
[2016-10-30 06:00] VITALS: BP 142/81
[2016-10-30] MEDS: HALOPERIDOL 1 MG TAB PO SCH (09:00)
[2016-10-30] MEDS: lamoTRIgine 100MG TAB PO SCH ×2 (10:12→20:07)
[2016-10-30] MEDS: CARVedilol 3.125 MG TAB PO SCH ×2 (10:13→20:06)
[2016-10-30] MEDS: ASPIRIN 81 MG CHEW TABLET PO SCH (10:13)
[2016-10-30] MEDS: MEMANTINE 5MG TABLET (NAMENDA) PO SCH ×2 (10:14→20:07)
[2016-10-30] MEDS: LORazepam 2 MG TAB PO PRN (20:07)
[2016-10-30] MEDS: PRAVASTATIN 20 MG TAB PO SCH (20:07)
[2016-10-30] MEDS: CLOPIDOGREL 75 MG TAB PO SCH (20:07)
[2016-10-30] MEDS: ACETAMINOPHEN TAB 650MG DOSE (2X325MG) PO PRN (20:07)
[2016-10-30] MEDS: DONEPEZIL 5 MG TAB PO SCH (20:07)
[2016-10-30] MEDS: MIRTAZAPINE 15 MG TAB PO SCH (20:07)
[2016-10-31 04:37] VITALS: BP 137/76
[2016-10-31] MEDS: HALOPERIDOL 1 MG TAB PO SCH (11:01)
[2016-10-31] MEDS: lamoTRIgine 100MG TAB PO SCH ×2 (11:01→20:23)
[2016-10-31] MEDS: MEMANTINE 5MG TABLET (NAMENDA) PO SCH ×2 (11:02→20:20)
[2016-10-31] MEDS: ASPIRIN 81 MG CHEW TABLET PO SCH (11:03)
[2016-10-31] MEDS: CARVedilol 3.125 MG TAB PO SCH ×2 (11:06→20:22)
[2016-10-31] MEDS: CLOPIDOGREL 75 MG TAB PO SCH (20:20)
[2016-10-31] MEDS: MIRTAZAPINE 15 MG TAB PO SCH (20:20)
[2016-10-31] MEDS: DONEPEZIL 5 MG TAB PO SCH (20:21)
[2016-10-31] MEDS: PRAVASTATIN 20 MG TAB PO SCH (20:21)
[2016-10-31] MEDS: LORazepam 2 MG TAB PO PRN (20:22)
[2016-11-01 06:00] VITALS: BP 134/77
[2016-11-01] MEDS: ACETAMINOPHEN TAB 650MG DOSE (2X325MG) PO PRN (06:25)
[2016-11-01] MEDS: LORazepam 2 MG TAB PO PRN ×2 (06:26→20:35)
[2016-11-01] MEDS: ASPIRIN 81 MG CHEW TABLET PO SCH (09:00)
[2016-11-01] MEDS: lamoTRIgine 100MG TAB PO SCH ×2 (09:19→20:36)
[2016-11-01] MEDS: MEMANTINE 5MG TABLET (NAMENDA) PO SCH ×2 (09:20→20:34)
[2016-11-01] MEDS: CARVedilol 3.125 MG TAB PO SCH ×2 (09:20→20:36)
[2016-11-01] MEDS: MIRALAX *UNIT DOSE* 17GM PACKET PO PRN (09:20)
[2016-11-01] MEDS: HALOPERIDOL 1 MG TAB PO SCH (09:20)
[2016-11-01 14:00] VITALS: BP 138/86
[2016-11-01] MEDS: CLOPIDOGREL 75 MG TAB PO SCH (20:34)
[2016-11-01] MEDS: MIRTAZAPINE 15 MG TAB PO SCH (20:34)
[2016-11-01] MEDS: PRAVASTATIN 20 MG TAB PO SCH (20:35)
[2016-11-01] MEDS: DONEPEZIL 5 MG TAB PO SCH (20:35)
[2016-11-01] MEDS: diphenhydrAMINE INJ 50MG/ML VIAL (J1200) IM PRN (23:06)
[2016-11-01] MEDS: HALOPERIDOL 5 MG/ML VIAL (J1630) IM PRN (23:16)
[2016-11-02] MEDS: ACETAMINOPHEN TAB 650MG DOSE (2X325MG) PO PRN (05:45)
[2016-11-02] MEDS: LORazepam 2 MG TAB PO PRN ×2 (05:45→21:42)
[2016-11-02 06:00] VITALS: BP 131/95
[2016-11-02] MEDS: lamoTRIgine 100MG TAB PO SCH ×2 (10:02→21:42)
[2016-11-02] MEDS: CARVedilol 3.125 MG TAB PO SCH ×2 (10:02→21:42)
[2016-11-02] MEDS: HALOPERIDOL 1 MG TAB PO SCH (10:02)
[2016-11-02] MEDS: ASPIRIN 81 MG CHEW TABLET PO SCH (10:02)
[2016-11-02] MEDS: MEMANTINE 5MG TABLET (NAMENDA) PO SCH ×2 (10:02→21:42)
[2016-11-02] MEDS: CLOPIDOGREL 75 MG TAB PO SCH (21:42)
[2016-11-02] MEDS: PRAVASTATIN 20 MG TAB PO SCH (21:42)
[2016-11-02] MEDS: DONEPEZIL 5 MG TAB PO SCH (21:42)
[2016-11-02] MEDS: MIRTAZAPINE 15 MG TAB PO SCH (21:43)
[2016-11-03] MEDS: HALOPERIDOL 5 MG/ML VIAL (J1630) IM PRN (01:29)
[2016-11-03] MEDS: lamoTRIgine 100MG TAB PO SCH ×2 (10:14→20:40)
[2016-11-03] MEDS: MEMANTINE 5MG TABLET (NAMENDA) PO SCH ×2 (10:14→20:41)
[2016-11-03] MEDS: ASPIRIN 81 MG CHEW TABLET PO SCH (10:14)
[2016-11-03] MEDS: HALOPERIDOL 1 MG TAB PO SCH (10:14)
[2016-11-03] MEDS: CARVedilol 3.125 MG TAB PO SCH ×2 (10:15→20:39)
[2016-11-03] MEDS: MIRALAX *UNIT DOSE* 17GM PACKET PO PRN (10:16)
[2016-11-03] MEDS: DONEPEZIL 5 MG TAB PO SCH (20:40)
[2016-11-03] MEDS: PRAVASTATIN 20 MG TAB PO SCH (20:41)
[2016-11-03] MEDS: MIRTAZAPINE 15 MG TAB PO SCH (20:41)
[2016-11-03] MEDS: CLOPIDOGREL 75 MG TAB PO SCH (20:55)
[2016-11-04 06:00] VITALS: BP 140/88
[2016-11-04] MEDS: CARVedilol 3.125 MG TAB PO SCH (08:09)
[2016-11-04] MEDS: MEMANTINE 5MG TABLET (NAMENDA) PO SCH (08:09)
[2016-11-04] MEDS: ASPIRIN 81 MG CHEW TABLET PO SCH (08:09)
[2016-11-04] MEDS: HALOPERIDOL 1 MG TAB PO SCH (08:09)
[2016-11-04] MEDS: lamoTRIgine 100MG TAB PO SCH (08:09)
[2016-11-04] MEDS: LORazepam 2 MG/ML VIAL (J2060) IM PRN (16:59)
[2016-11-05] MEDS: DONEPEZIL 5 MG TAB PO SCH ×2 (01:18→20:51)
[2016-11-05] MEDS: MEMANTINE 5MG TABLET (NAMENDA) PO SCH ×3 (01:18→20:50)
[2016-11-05] MEDS: PRAVASTATIN 20 MG TAB PO SCH ×2 (01:18→20:51)
[2016-11-05] MEDS: CLOPIDOGREL 75 MG TAB PO SCH ×2 (01:19→20:51)
[2016-11-05] MEDS: lamoTRIgine 100MG TAB PO SCH ×3 (01:19→20:52)
[2016-11-05] MEDS: MIRTAZAPINE 15 MG TAB PO SCH ×2 (01:19→20:52)
[2016-11-05] MEDS: CARVedilol 3.125 MG TAB PO SCH ×3 (01:19→20:53)
[2016-11-05 06:00] VITALS: BP 122/64
[2016-11-05] MEDS: ASPIRIN 81 MG CHEW TABLET PO SCH (08:54)
[2016-11-05] MEDS: HALOPERIDOL 1 MG TAB PO SCH (08:54)
[2016-11-05] MEDS: diphenhydrAMINE INJ 50MG/ML VIAL (J1200) IM PRN (22:59)
[2016-11-05] MEDS: LORazepam 2 MG/ML VIAL (J2060) IM PRN (23:01)
[2016-11-06] MEDS: LORazepam 2 MG TAB PO PRN (02:49)
[2016-11-06 06:00] VITALS: BP 133/72
[2016-11-06] MEDS: lamoTRIgine 100MG TAB PO SCH ×2 (08:58→20:02)
[2016-11-06] MEDS: MEMANTINE 5MG TABLET (NAMENDA) PO SCH ×2 (08:58→20:00)
[2016-11-06] MEDS: HALOPERIDOL 1 MG TAB PO SCH (08:58)
[2016-11-06] MEDS: ASPIRIN 81 MG CHEW TABLET PO SCH (08:59)
[2016-11-06] MEDS: CARVedilol 3.125 MG TAB PO SCH ×2 (08:59→20:07)
[2016-11-06] MEDS: DONEPEZIL 5 MG TAB PO SCH (20:01)
[2016-11-06] MEDS: MIRTAZAPINE 15 MG TAB PO SCH (20:02)
[2016-11-06] MEDS: CLOPIDOGREL 75 MG TAB PO SCH (20:03)
[2016-11-06] MEDS: PRAVASTATIN 20 MG TAB PO SCH (20:03)
[2016-11-07 06:00] VITALS: BP 140/97
[2016-11-07] MEDS: ACETAMINOPHEN TAB 650MG DOSE (2X325MG) PO PRN ×2 (06:19→20:17)
[2016-11-07] MEDS: CARVedilol 3.125 MG TAB PO SCH ×2 (08:09→20:19)
[2016-11-07] MEDS: MEMANTINE 5MG TABLET (NAMENDA) PO SCH ×2 (08:09→20:14)
[2016-11-07] MEDS: lamoTRIgine 100MG TAB PO SCH ×2 (08:09→20:15)
[2016-11-07] MEDS: HALOPERIDOL 1 MG TAB PO SCH (08:09)
[2016-11-07] MEDS: ASPIRIN 81 MG CHEW TABLET PO SCH (08:10)
[2016-11-07] MEDS: PRAVASTATIN 20 MG TAB PO SCH (20:15)
[2016-11-07] MEDS: MIRTAZAPINE 15 MG TAB PO SCH (20:15)
[2016-11-07] MEDS: CLOPIDOGREL 75 MG TAB PO SCH (20:16)
[2016-11-07] MEDS: DONEPEZIL 5 MG TAB PO SCH (20:17)
[2016-11-07] MEDS: LORazepam 2 MG TAB PO PRN (22:44)
[2016-11-08 06:00] VITALS: BP 142/82
[2016-11-08] MEDS: CARVedilol 3.125 MG TAB PO SCH ×2 (10:02→20:10)
[2016-11-08] MEDS: lamoTRIgine 100MG TAB PO SCH ×2 (10:02→20:08)
[2016-11-08] MEDS: ASPIRIN 81 MG CHEW TABLET PO SCH (10:03)
[2016-11-08] MEDS: MEMANTINE 5MG TABLET (NAMENDA) PO SCH ×2 (10:03→20:08)
[2016-11-08] MEDS: HALOPERIDOL 1 MG TAB PO SCH (10:03)
[2016-11-08] MEDS: MIRALAX *UNIT DOSE* 17GM PACKET PO PRN (11:22)
[2016-11-08] MEDS: LORazepam 2 MG TAB PO PRN (11:22)
[2016-11-08] MEDS: ACETAMINOPHEN TAB 650MG DOSE (2X325MG) PO PRN (13:35)
[2016-11-08] MEDS: CLOPIDOGREL 75 MG TAB PO SCH (20:08)
[2016-11-08] MEDS: PRAVASTATIN 20 MG TAB PO SCH (20:08)
[2016-11-08] MEDS: MIRTAZAPINE 15 MG TAB PO SCH (20:08)
[2016-11-08] MEDS: DONEPEZIL 5 MG TAB PO SCH (20:09)
[2016-11-09 05:25] VITALS: BP 150/99
[2016-11-09] MEDS: HALOPERIDOL 1 MG TAB PO SCH (09:03)
[2016-11-09] MEDS: CARVedilol 3.125 MG TAB PO SCH ×2 (09:03→21:45)
[2016-11-09] MEDS: ASPIRIN 81 MG CHEW TABLET PO SCH (09:04)
[2016-11-09] MEDS: lamoTRIgine 100MG TAB PO SCH ×2 (09:04→21:44)
[2016-11-09] MEDS: MEMANTINE 5MG TABLET (NAMENDA) PO SCH ×2 (09:04→21:44)
[2016-11-09] MEDS: PRAVASTATIN 20 MG TAB PO SCH (21:43)
[2016-11-09] MEDS: CLOPIDOGREL 75 MG TAB PO SCH (21:44)
[2016-11-09] MEDS: DONEPEZIL 5 MG TAB PO SCH (21:44)
[2016-11-09] MEDS: MIRTAZAPINE 15 MG TAB PO SCH (21:44)
[2016-11-10] MEDS: ASPIRIN 81 MG CHEW TABLET PO SCH (08:34)
[2016-11-10] MEDS: HALOPERIDOL 1 MG TAB PO SCH (08:34)
[2016-11-10] MEDS: MEMANTINE 5MG TABLET (NAMENDA) PO SCH ×2 (08:35→20:24)
[2016-11-10] MEDS: CARVedilol 3.125 MG TAB PO SCH ×2 (08:35→20:25)
[2016-11-10] MEDS: lamoTRIgine 100MG TAB PO SCH ×2 (08:35→20:26)
--- NOTE | 2016-11-10 11:14 | IPNPDOC ---
Subjective Date Seen The patient was seen on 11/10/16. Subjective Chief Complaint/HPI The patient is a 60-year-old male admitted with a reason for visit of MHE. Events since last encounter Still has days when he is combative and violent toward staff. Refuses to take pills today, but calm Constitutional: Denies: Chills, Fever Pulmonary: Denies: Dyspnea, Cough Cardiovascular: Denies: Chest Pain, Palpitations, Orthopnea Gastrointestinal: Denies: Nausea, Vomiting, Abdominal Pain Objective Physical Examination General Exam: Positive: Alert (sitting on bedside - calm. ), No Acute Distress Heart Exam: Positive: Rate Normal, Regular Rhythm Abdomen Exam: Positive: Soft Male Exam: Positive: Edema (1+ LE edema BL without erythema. Right great toe without swelling, erythema or obvious lesions - slight tenderness over MCP) Assessment /Plan Problems (1) Lower extremity edema Status: Acute Problem Text: 11/10 - mild chronic edema - he is not likely to wear support stockings. Edema is dependent b/c he spends most of the day walking int he room Could give scheduled Diuretic if patient seems bothered by the edema or if worsens (2) Lewy body dementia with behavioral disturbance Status: Chronic Problem Text: 11/10 - His behavior is labile, but mostly stable on current regimen. 10/27 - He has been started on Haldol daily with prn dosing as well due to episodes of severe agitation he seem sto be tolerating this and is awake ans walking in room today without agitation. 10/19/17. seroquel stopped, will increase abilify as noted below. 10/18/16 more ataxic with seroquel 100 so dose reduced to 50. If behavior not adequately controlled with 50 then will stop this agent and increase abilify to 5mg . 10/17/16: add on Seroquel 100 mg po daily at 1800. 10/12 -- per report, fewer behavioral problems today. Patient does not want to remain clothed, but was not violent. Continue current medication regimen. 10/11 -- as patient became fairly sedated after Haldol last night, will switch antipsychotic to PO Haldol at a lower dose. Worsening behaviors at home lead to an unsafe home situation. Patient likely will require placement. Currently has Ativan ordered prn. (3) Hospital admission due to social situation Status: Acute Problem Text: Admitted for unsafe home situation. (4) Coronary artery disease Status: Chronic Problem Text: Continue home statin/Plavix/beta matt. Plan/VTE VTE Prophylaxis Ordered?: Yes Plan Family Medicine Attending Note: I saw and examined Mr. Gomes, discussed with EDWIGE Sherman. Agree with their note as documented. 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
[2016-11-10] MEDS: MIRTAZAPINE 15 MG TAB PO SCH (20:24)
[2016-11-10] MEDS: DONEPEZIL 5 MG TAB PO SCH (20:25)
[2016-11-10] MEDS: PRAVASTATIN 20 MG TAB PO SCH (20:26)
[2016-11-10] MEDS: CLOPIDOGREL 75 MG TAB PO SCH (20:26)
[2016-11-10] MEDS: LORazepam 2 MG TAB PO PRN (20:26)
[2016-11-11 06:00] VITALS: BP 141/74
[2016-11-11] MEDS: LORazepam 2 MG TAB PO PRN (06:17)
[2016-11-11] MEDS: HALOPERIDOL 1 MG TAB PO SCH (07:58)
[2016-11-11] MEDS: lamoTRIgine 100MG TAB PO SCH ×2 (07:58→20:04)
[2016-11-11] MEDS: MEMANTINE 5MG TABLET (NAMENDA) PO SCH ×2 (07:59→20:02)
[2016-11-11] MEDS: ASPIRIN 81 MG CHEW TABLET PO SCH (07:59)
[2016-11-11] MEDS: CARVedilol 3.125 MG TAB PO SCH ×2 (07:59→20:04)
[2016-11-11] MEDS: MIRTAZAPINE 15 MG TAB PO SCH (20:03)
[2016-11-11] MEDS: CLOPIDOGREL 75 MG TAB PO SCH (20:03)
[2016-11-11] MEDS: PRAVASTATIN 20 MG TAB PO SCH (20:03)
[2016-11-11] MEDS: DONEPEZIL 5 MG TAB PO SCH (20:03)
[2016-11-12 06:00] VITALS: BP 139/81
[2016-11-12] MEDS: lamoTRIgine 100MG TAB PO SCH ×2 (08:11→20:45)
[2016-11-12] MEDS: ASPIRIN 81 MG CHEW TABLET PO SCH (08:11)
[2016-11-12] MEDS: MEMANTINE 5MG TABLET (NAMENDA) PO SCH ×2 (08:11→20:45)
[2016-11-12] MEDS: HALOPERIDOL 1 MG TAB PO SCH (08:11)
[2016-11-12] MEDS: CARVedilol 3.125 MG TAB PO SCH ×2 (08:14→20:47)
[2016-11-12] MEDS: ACETAMINOPHEN TAB 650MG DOSE (2X325MG) PO PRN ×2 (09:36→20:47)
--- NOTE | 2016-11-12 13:41 | IPN ---
DATE: 11/12/2016 When I visited with Toni, he was walking in the webber with one of the volunteers. He is cooperative and bright. He is holding his neck in a stooped manner. This has been going on, per nursing staff, for several days and has preceded a recent fall that he has had. I did not find anything significant on examination. I am sending him down for cervical spine films. I am also going to stop his Haldol which can cause extrapyramidal side effects including muscular rigidity. He is only getting a mg per day. He does have some ordered as-needed should he need it for behavioral control.
--- NOTE | 2016-11-12 13:44 | REP ---
Clinical: Neck pain. Technique: AP, lateral, flexion/extension, bilateral oblique, and odontoid views. Findings: Reversal of normal lordosis is appreciated. Mild/moderate early anterior spurring and minimal disc space narrowing at the C4-5, C5-6 levels appreciated. Neural foramen appear patent. Open mouth view demonstrates normal odontoid process. No acute fracture / compression injury or subluxation. Impression: Reversal of normal lordosis and mild/moderate degenerative changes. Signed by Ozzie Tony MD 11/12/2016 01:36 P
[2016-11-12] MEDS: DONEPEZIL 5 MG TAB PO SCH (20:45)
[2016-11-12] MEDS: CLOPIDOGREL 75 MG TAB PO SCH (20:45)
[2016-11-12] MEDS: MIRTAZAPINE 15 MG TAB PO SCH (20:46)
[2016-11-12] MEDS: PRAVASTATIN 20 MG TAB PO SCH (20:46)
[2016-11-13 06:00] VITALS: BP 124/88
[2016-11-13] MEDS: ASPIRIN 81 MG CHEW TABLET PO SCH (07:39)
[2016-11-13] MEDS: MEMANTINE 5MG TABLET (NAMENDA) PO SCH ×2 (07:40→19:50)
[2016-11-13] MEDS: CARVedilol 3.125 MG TAB PO SCH ×2 (07:40→19:49)
[2016-11-13] MEDS: lamoTRIgine 100MG TAB PO SCH ×2 (07:40→19:51)
[2016-11-13] MEDS: LORazepam 2 MG TAB PO PRN ×2 (07:41→19:51)
[2016-11-13] MEDS: CLOPIDOGREL 75 MG TAB PO SCH (19:50)
[2016-11-13] MEDS: DONEPEZIL 5 MG TAB PO SCH (19:50)
[2016-11-13] MEDS: MIRTAZAPINE 15 MG TAB PO SCH (19:50)
[2016-11-13] MEDS: PRAVASTATIN 20 MG TAB PO SCH (19:50)
[2016-11-13 21:30] VITALS: BP 124/88
[2016-11-13] MEDS: diphenhydrAMINE 25 MG CAP PO PRN (21:45)
[2016-11-14] MEDS: ACETAMINOPHEN TAB 650MG DOSE (2X325MG) PO PRN ×2 (04:49→20:57)
[2016-11-14] MEDS: LORazepam 2 MG TAB PO PRN ×2 (04:49→20:56)
[2016-11-14] MEDS: MEMANTINE 5MG TABLET (NAMENDA) PO SCH ×2 (11:22→20:55)
[2016-11-14] MEDS: CARVedilol 3.125 MG TAB PO SCH ×2 (11:23→20:56)
[2016-11-14] MEDS: lamoTRIgine 100MG TAB PO SCH ×2 (11:23→20:55)
[2016-11-14] MEDS: ASPIRIN 81 MG CHEW TABLET PO SCH (11:23)
[2016-11-14 14:00] VITALS: BP 122/70
[2016-11-14] MEDS: DONEPEZIL 5 MG TAB PO SCH (20:55)
[2016-11-14] MEDS: MIRTAZAPINE 15 MG TAB PO SCH (20:55)
[2016-11-14] MEDS: PRAVASTATIN 20 MG TAB PO SCH (20:56)
[2016-11-14] MEDS: CLOPIDOGREL 75 MG TAB PO SCH (20:56)
[2016-11-14] MEDS: LORazepam 2 MG/ML VIAL (J2060) IM PRN (23:35)
[2016-11-14] MEDS: diphenhydrAMINE INJ 50MG/ML VIAL (J1200) IM PRN (23:36)
[2016-11-14] MEDS: HALOPERIDOL 5 MG/ML VIAL (J1630) IM PRN (23:41)
[2016-11-15] MEDS: HALOPERIDOL 5 MG/ML VIAL (J1630) IM PRN (01:45)
[2016-11-15 02:50] LABS: HIVSOURCE0 NEGATIVE (NEGATIVE)
[2016-11-15 02:52] LABS: CONTROL LINE INT CTR LINE PRESENT; HIV SOURCE PT 1 NEGATIVE (NEGATIVE)
[2016-11-15] MEDS: LORazepam 2 MG TAB PO PRN (06:54)
[2016-11-15 10:48] LABS: HEP C VIRUS AB INDEX SOURCE PT 0.2 INDEX (0.0-0.8)
[2016-11-15] MEDS: CARVedilol 3.125 MG TAB PO SCH ×2 (11:39→21:11)
[2016-11-15] MEDS: ASPIRIN 81 MG CHEW TABLET PO SCH (11:39)
[2016-11-15] MEDS: lamoTRIgine 100MG TAB PO SCH ×2 (11:39→21:12)
[2016-11-15] MEDS: MEMANTINE 5MG TABLET (NAMENDA) PO SCH ×2 (11:40→21:11)
[2016-11-15] MEDS: MIRTAZAPINE 15 MG TAB PO SCH (21:10)
[2016-11-15] MEDS: DONEPEZIL 5 MG TAB PO SCH (21:11)
[2016-11-15] MEDS: PRAVASTATIN 20 MG TAB PO SCH (21:11)
[2016-11-15] MEDS: CLOPIDOGREL 75 MG TAB PO SCH (21:12)
[2016-11-15 22:00] VITALS: BP 166/90
[2016-11-16 06:00] VITALS: BP 151/82
--- NOTE | 2016-11-16 07:34 | IPNPDOC ---
Subjective Date Seen The patient was seen on 11/16/16. Subjective Chief Complaint/HPI The patient is a 60-year-old male admitted with a reason for visit of MHE. Events since last encounter Patient improving in behaviors and sleep patterns with addition of Benadryl daily at hs. Head/neck droop resolved after stopping Haldol. General: Reports: ROS Unobtainable Objective Physical Examination General Exam: Positive: Alert (sleeping), No Acute Distress Eye Exam: Positive: PERRLA, Conjunctiva & lids normal, EOMI, Negative: Sclera icteric Neck Exam: Positive: Supple, Negative: JVD, thyromegaly Chest Exam: Positive: Clear to auscultation, Normal air movement Heart Exam: Positive: Rate Normal, Regular Rhythm Abdomen Exam: Positive: Normal bowel sounds, Soft, Negative: Tenderness Assessment /Plan Problems (1) Lewy body dementia with behavioral disturbance Status: Chronic Problem Text: 11/16/16: Stabilized behaviors. improved sleep patterns with Benadryl at HS. Haldol stopped d/t MS changes. 11/10 - His behavior is labile, but mostly stable on current regimen. 10/27 - He has been started on Haldol daily with prn dosing as well due to episodes of severe agitation he seem sto be tolerating this and is awake ans walking in room today without agitation. 10/19/17. seroquel stopped, will increase abilify as noted below. 10/18/16 more ataxic with seroquel 100 so dose reduced to 50. If behavior not adequately controlled with 50 then will stop this agent and increase abilify to 5mg . 10/17/16: add on Seroquel 100 mg po daily at 1800. 10/12 -- per report, fewer behavioral problems today. Patient does not want to remain clothed, but was not violent. Continue current medication regimen. 10/11 -- as patient became fairly sedated after Haldol last night, will switch antipsychotic to PO Haldol at a lower dose. Worsening behaviors at home lead to an unsafe home situation. Patient likely will require placement. Currently has Ativan ordered prn. (2) Hospital admission due to social situation Status: Acute Problem Text: Admitted for unsafe home situation. (3) Coronary artery disease Status: Chronic Problem Text: Continue home statin/Plavix/beta matt. (4) Lower extremity edema Status: Acute Problem Text: 11/10 - mild chronic edema - he is not likely to wear support stockings. Edema is dependent b/c he spends most of the day walking int he room Could give scheduled Diuretic if patient seems bothered by the edema or if worsens Plan/VTE VTE Prophylaxis Ordered?: Yes VS, I&O, 24H, Fishbone Vital Signs/I&O Vital Signs Date Time Temp Pulse Resp B/P (MAP) Pulse Ox O2 Delivery O2 Flow Rate FiO2 11/16/16 06:00 98.5 92 18 151/82 (105) 98 Room Air I&O- Last 24 Hours up to 6 AM 11/16/16 06:00 Intake Total 120 ml Output Total 0 ml Balance 120 ml Krysta Dixon HEAT READER Nov 16, 2016 07:34
[2016-11-16] MEDS: CARVedilol 3.125 MG TAB PO SCH ×2 (09:04→20:55)
[2016-11-16] MEDS: ASPIRIN 81 MG CHEW TABLET PO SCH (09:04)
[2016-11-16] MEDS: MEMANTINE 5MG TABLET (NAMENDA) PO SCH ×2 (09:05→20:52)
[2016-11-16] MEDS: lamoTRIgine 100MG TAB PO SCH ×2 (09:05→20:53)
[2016-11-16] MEDS: CLOPIDOGREL 75 MG TAB PO SCH (20:52)
[2016-11-16] MEDS: MIRTAZAPINE 15 MG TAB PO SCH (20:52)
[2016-11-16] MEDS: DONEPEZIL 5 MG TAB PO SCH (20:52)
[2016-11-16] MEDS: PRAVASTATIN 20 MG TAB PO SCH (20:52)
[2016-11-17] MEDS: LORazepam 2 MG/ML VIAL (J2060) IM PRN (00:29)
[2016-11-17 05:13] VITALS: BP 119/66
[2016-11-17] MEDS: ASPIRIN 81 MG CHEW TABLET PO SCH (09:14)
[2016-11-17] MEDS: lamoTRIgine 100MG TAB PO SCH ×2 (09:15→21:25)
[2016-11-17] MEDS: MEMANTINE 5MG TABLET (NAMENDA) PO SCH ×2 (09:15→21:25)
[2016-11-17] MEDS: CARVedilol 3.125 MG TAB PO SCH ×2 (09:15→21:24)
[2016-11-17] MEDS: DONEPEZIL 5 MG TAB PO SCH (21:23)
[2016-11-17] MEDS: PRAVASTATIN 20 MG TAB PO SCH (21:23)
[2016-11-17] MEDS: MIRTAZAPINE 15 MG TAB PO SCH (21:25)
[2016-11-17] MEDS: CLOPIDOGREL 75 MG TAB PO SCH (21:25)
[2016-11-18 05:10] VITALS: BP 144/87
[2016-11-18] MEDS: CARVedilol 3.125 MG TAB PO SCH ×2 (09:43→20:32)
[2016-11-18] MEDS: ASPIRIN 81 MG CHEW TABLET PO SCH (09:43)
[2016-11-18] MEDS: MEMANTINE 5MG TABLET (NAMENDA) PO SCH ×2 (09:43→20:31)
[2016-11-18] MEDS: lamoTRIgine 100MG TAB PO SCH ×2 (09:44→20:31)
[2016-11-18] MEDS: PRAVASTATIN 20 MG TAB PO SCH (20:31)
[2016-11-18] MEDS: DONEPEZIL 5 MG TAB PO SCH (20:31)
[2016-11-18] MEDS: MIRTAZAPINE 15 MG TAB PO SCH (20:31)
[2016-11-18] MEDS: CLOPIDOGREL 75 MG TAB PO SCH (20:31)
[2016-11-18 22:00] VITALS: BP 146/87
[2016-11-19 06:00] VITALS: BP 134/80
[2016-11-19] MEDS: ASPIRIN 81 MG CHEW TABLET PO SCH (09:49)
[2016-11-19] MEDS: lamoTRIgine 100MG TAB PO SCH ×2 (09:49→21:00)
[2016-11-19] MEDS: CARVedilol 3.125 MG TAB PO SCH ×2 (09:49→21:00)
[2016-11-19] MEDS: MEMANTINE 5MG TABLET (NAMENDA) PO SCH ×2 (09:49→21:00)
[2016-11-19] MEDS: CLOPIDOGREL 75 MG TAB PO SCH (21:00)
[2016-11-19] MEDS: PRAVASTATIN 20 MG TAB PO SCH (21:00)
[2016-11-19] MEDS: DONEPEZIL 5 MG TAB PO SCH (21:00)
[2016-11-19] MEDS: MIRTAZAPINE 15 MG TAB PO SCH (21:00)
[2016-11-19 22:00] VITALS: BP 106/56
[2016-11-20] MEDS: ACETAMINOPHEN TAB 650MG DOSE (2X325MG) PO PRN (01:16)
[2016-11-20 06:00] VITALS: BP 132/87
[2016-11-20] MEDS: ASPIRIN 81 MG CHEW TABLET PO SCH (08:54)
[2016-11-20] MEDS: MEMANTINE 5MG TABLET (NAMENDA) PO SCH ×2 (08:54→20:35)
[2016-11-20] MEDS: lamoTRIgine 100MG TAB PO SCH ×2 (08:54→20:35)
[2016-11-20] MEDS: CARVedilol 3.125 MG TAB PO SCH ×2 (08:55→20:36)
[2016-11-20 14:00] VITALS: BP 130/78
[2016-11-20] MEDS: PRAVASTATIN 20 MG TAB PO SCH (20:34)
[2016-11-20] MEDS: MIRTAZAPINE 15 MG TAB PO SCH (20:34)
[2016-11-20] MEDS: CLOPIDOGREL 75 MG TAB PO SCH (20:35)
[2016-11-20] MEDS: DONEPEZIL 5 MG TAB PO SCH (20:35)
[2016-11-20 21:30] VITALS: BP 150/75
[2016-11-21 06:00] VITALS: BP 142/84
[2016-11-21] MEDS: MEMANTINE 5MG TABLET (NAMENDA) PO SCH ×2 (10:17→20:28)
[2016-11-21] MEDS: lamoTRIgine 100MG TAB PO SCH ×2 (10:17→20:27)
[2016-11-21] MEDS: ASPIRIN 81 MG CHEW TABLET PO SCH (10:18)
[2016-11-21] MEDS: CARVedilol 3.125 MG TAB PO SCH ×2 (10:18→20:28)
[2016-11-21] MEDS: MIRALAX *UNIT DOSE* 17GM PACKET PO PRN (12:33)
[2016-11-21] MEDS: MIRTAZAPINE 15 MG TAB PO SCH (20:27)
[2016-11-21] MEDS: PRAVASTATIN 20 MG TAB PO SCH (20:27)
[2016-11-21] MEDS: DONEPEZIL 5 MG TAB PO SCH (20:27)
[2016-11-21] MEDS: CLOPIDOGREL 75 MG TAB PO SCH (20:27)
[2016-11-22 06:00] VITALS: BP 136/86
[2016-11-22] MEDS: lamoTRIgine 100MG TAB PO SCH ×2 (09:43→20:46)
[2016-11-22] MEDS: ASPIRIN 81 MG CHEW TABLET PO SCH (09:43)
[2016-11-22] MEDS: CARVedilol 3.125 MG TAB PO SCH ×2 (09:44→20:45)
[2016-11-22] MEDS: MEMANTINE 5MG TABLET (NAMENDA) PO SCH ×2 (09:44→20:46)
[2016-11-22] MEDS: CLOPIDOGREL 75 MG TAB PO SCH (20:44)
[2016-11-22] MEDS: DONEPEZIL 5 MG TAB PO SCH (20:45)
[2016-11-22] MEDS: MIRTAZAPINE 15 MG TAB PO SCH (20:46)
[2016-11-22] MEDS: MIRALAX *UNIT DOSE* 17GM PACKET PO PRN (20:46)
[2016-11-22] MEDS: PRAVASTATIN 20 MG TAB PO SCH (20:46)
[2016-11-23 06:00] VITALS: BP 152/78
[2016-11-23] MEDS: lamoTRIgine 100MG TAB PO SCH ×2 (09:41→21:10)
[2016-11-23] MEDS: ASPIRIN 81 MG CHEW TABLET PO SCH (09:41)
[2016-11-23] MEDS: CARVedilol 3.125 MG TAB PO SCH ×2 (09:41→21:10)
[2016-11-23] MEDS: MEMANTINE 5MG TABLET (NAMENDA) PO SCH ×2 (09:41→21:09)
--- NOTE | 2016-11-23 11:19 | IPNPDOC ---
Subjective Date Seen The patient was seen on 11/23/16. Subjective Chief Complaint/HPI The patient is a 60-year-old male admitted with a reason for visit of MHE. Events since last encounter Pt with sitter, nursing without new concerns. General: Reports: ROS Unobtainable Objective Physical Examination General Exam: Positive: No Acute Distress, Negative: Alert (sleeping, difficult to arouse, but does awaken and tell me that he is right here) Eye Exam: Positive: PERRLA, Conjunctiva & lids normal, EOMI, Negative: Sclera icteric Neck Exam: Positive: Supple, Negative: JVD, thyromegaly Chest Exam: Positive: Clear to auscultation, Normal air movement Heart Exam: Positive: Rate Normal, Regular Rhythm Abdomen Exam: Positive: Normal bowel sounds, Soft, Negative: Tenderness Assessment /Plan Problems (1) Lewy body dementia with behavioral disturbance Status: Chronic Problem Text: 11/16/16: Stabilized behaviors. improved sleep patterns with Benadryl at HS. Haldol stopped d/t MS changes. 11/10 - His behavior is labile, but mostly stable on current regimen. 10/27 - He has been started on Haldol daily with prn dosing as well due to episodes of severe agitation he seem sto be tolerating this and is awake ans walking in room today without agitation. 10/19/17. seroquel stopped, will increase abilify as noted below. 10/18/16 more ataxic with seroquel 100 so dose reduced to 50. If behavior not adequately controlled with 50 then will stop this agent and increase abilify to 5mg . 10/17/16: add on Seroquel 100 mg po daily at 1800. 10/12 -- per report, fewer behavioral problems today. Patient does not want to remain clothed, but was not violent. Continue current medication regimen. 10/11 -- as patient became fairly sedated after Haldol last night, will switch antipsychotic to PO Haldol at a lower dose. Worsening behaviors at home lead to an unsafe home situation. Patient likely will require placement. Currently has Ativan ordered prn. (2) Hospital admission due to social situation Status: Acute Problem Text: Admitted for unsafe home situation. (3) Coronary artery disease Status: Chronic Problem Text: Continue home statin/Plavix/beta matt. (4) Lower extremity edema Status: Acute Problem Text: 11/10 - mild chronic edema - he is not likely to wear support stockings. Edema is dependent b/c he spends most of the day walking int he room Could give scheduled Diuretic if patient seems bothered by the edema or if worsens Plan/VTE VTE Prophylaxis Ordered?: Yes VS, I&O, 24H, Fishbone Vital Signs/I&O Vital Signs Date Time Temp Pulse Resp B/P (MAP) Pulse Ox O2 Delivery O2 Flow Rate FiO2 11/23/16 09:41 78 152/78 11/23/16 06:00 97.6 18 96 Room Air I&O- Last 24 Hours up to 6 AM 11/24/16 05:59 Intake Total 60 ml Balance 60 ml GILBERTO MONTOYA PA-C Nov 23, 2016 11:19
[2016-11-23] MEDS: LORazepam 2 MG/ML VIAL (J2060) IM PRN ×2 (13:05→23:47)
[2016-11-23] MEDS: MIRTAZAPINE 15 MG TAB PO SCH (21:09)
[2016-11-23] MEDS: CLOPIDOGREL 75 MG TAB PO SCH (21:09)
[2016-11-23] MEDS: DONEPEZIL 5 MG TAB PO SCH (21:09)
[2016-11-23] MEDS: PRAVASTATIN 20 MG TAB PO SCH (21:10)
[2016-11-24 06:00] VITALS: BP 126/75
[2016-11-24] MEDS: MEMANTINE 5MG TABLET (NAMENDA) PO SCH ×2 (10:13→22:39)
[2016-11-24] MEDS: ASPIRIN 81 MG CHEW TABLET PO SCH (10:14)
[2016-11-24] MEDS: lamoTRIgine 100MG TAB PO SCH ×2 (10:14→22:37)
[2016-11-24] MEDS: CARVedilol 3.125 MG TAB PO SCH ×2 (10:15→22:38)
[2016-11-24] MEDS: LORazepam 2 MG TAB PO PRN (16:40)
[2016-11-24 16:42] LABS: BASO % 0.7 % (0.0-1.0); EOS # 0.1 K/mm3 (0.0-0.50); LARGE UNSTAINED CELL # 0.1 K/mm3 (0.0-0.4); LARGE UNSTAINED CELL % 1.5 % (0.0-4.0); LYMPH # 1.5 K/mm3 (1.5-4.5); LYMPH % 22.4 % (24.0-44.0); MEAN CORPUSCULAR HEMOGLOBIN 30.9 pg (27.0-33.0); MEAN CORPUSCULAR HGB CONC 34.8 g/dl (32.0-36.5); MEAN CORPUSCULAR VOLUME 88.8 fl (80.0-96.0); MONO # 0.3 K/mm3 (0.0-0.8); MONO % 4.4 % (0.0-5.0); NEUTROPHILS # 4.7 K/mm3 (1.8-7.7); NEUTROPHILS % 70.1 % (36.0-66.0); PLATELET COUNT, AUTOMATED 293 k/mm3 (150-450); RED CELL DISTRIBUTION WIDTH 12.9 % (11.5-14.5); WHITE BLOOD COUNT 6.6 K/mm3 (4.0-10.0)
[2016-11-24 17:11] LABS: ANION GAP 11 MEQ/L (8-16); BLOOD UREA NITROGEN 19 MG/DL (7-18); CALCIUM LEVEL 8.9 MG/DL (8.8-10.2); CARBON DIOXIDE LEVEL 26 MEQ/L (21-32); CHLORIDE LEVEL 110 MEQ/L (98-107); CREATININE FOR GFR 1.22 MG/DL (0.70-1.30); GLOMERULAR FILTRATION RATE > 60.0 (>49); GLUCOSE, FASTING 108 MG/DL (80-110); SODIUM LEVEL 147 MEQ/L (136-145)
[2016-11-24 17:17] LABS: POTASSIUM SERUM 4.2 MEQ/L (3.5-5.1)
--- NOTE | 2016-11-24 19:00 | IPNPDOC ---
Subjective Date Seen The patient was seen on 11/24/16. Subjective Chief Complaint/HPI The patient is a 60-year-old male admitted with a reason for visit of MHE. Events since last encounter This afternoon, patient developed diaphoresis, increased agitation, tachycardia. Not reporting pain or other specific symptom. Objective Physical Examination General Exam: Positive: No Acute Distress, Negative: Alert (sleeping, difficult to arouse, but does awaken and tell me that he is right here) Eye Exam: Positive: PERRLA, Conjunctiva & lids normal, EOMI, Negative: Sclera icteric Neck Exam: Positive: Supple, Negative: JVD, thyromegaly Chest Exam: Positive: Clear to auscultation, Normal air movement Heart Exam: Positive: Rate Normal, Regular Rhythm Abdomen Exam: Positive: Normal bowel sounds, Soft, Negative: Tenderness Assessment /Plan Problems (1) Lewy body dementia with behavioral disturbance Status: Chronic Problem Text: 11/24: after passing large BM (nonex8 days) he was calmer, diaphoresis resolved and he looked comfortable. 11/16/16: Stabilized behaviors. improved sleep patterns with Benadryl at HS. Haldol stopped d/t MS changes. 11/10 - His behavior is labile, but mostly stable on current regimen. 10/27 - He has been started on Haldol daily with prn dosing as well due to episodes of severe agitation he seem sto be tolerating this and is awake ans walking in room today without agitation. 10/19/17. seroquel stopped, will increase abilify as noted below. 10/18/16 more ataxic with seroquel 100 so dose reduced to 50. If behavior not adequately controlled with 50 then will stop this agent and increase abilify to 5mg . 10/17/16: add on Seroquel 100 mg po daily at 1800. 10/12 -- per report, fewer behavioral problems today. Patient does not want to remain clothed, but was not violent. Continue current medication regimen. 10/11 -- as patient became fairly sedated after Haldol last night, will switch antipsychotic to PO Haldol at a lower dose. Worsening behaviors at home lead to an unsafe home situation. Patient likely will require placement. Currently has Ativan ordered prn. (2) Hospital admission due to social situation Status: Acute Problem Text: Admitted for unsafe home situation. (3) Coronary artery disease Status: Chronic Problem Text: Continue home statin/Plavix/beta matt. (4) Lower extremity edema Status: Acute Problem Text: 11/10 - mild chronic edema - he is not likely to wear support stockings. Edema is dependent b/c he spends most of the day walking int he room Could give scheduled Diuretic if patient seems bothered by the edema or if worsens Plan/VTE VTE Prophylaxis Ordered?: Yes Plan Diagnostics: Check Labs, Repeat EKG VS, [facility]O, [facility] Vital Signs Date Time Temp Pulse Resp B/P (MAP) Pulse Ox O2 Delivery O2 Flow Rate FiO2 11/24/16 10:15 69 101/52 11/24/16 08:15 Room Air 11/24/16 06:00 97.0 18 98 I&O- Last 24 Hours up to 6 AM 11/25/16 05:59 Intake Total 240 ml Output Total 0 ml Balance 240 ml Laboratory Data 24H LABS Laboratory Tests 2 11/24/16 15:59: Bedside Glucose (Misc Panel) 127H 11/24/16 16:26: White Blood Count 6.6, Red Blood Count 4.39, Hemoglobin 13.6L, Hematocrit 39.0L , Mean Corpuscular Volume 88.8, Mean Corpuscular Hemoglobin 30.9, Mean Corpuscular Hemoglobin Concent 34.8, Red Cell Distribution Width 12.9, Platelet Count 293, Neutrophils (%) (Auto) 70.1H, Lymphocytes (%) (Auto) 22.4L, Monocytes (%) (Auto) 4.4, Eosinophils (%) (Auto) 1.0, Basophils (%) (Auto) 0.7, Neutrophils # (Auto) 4.7, Lymphocytes # (Auto) 1.5, Monocytes # (Auto) 0.3, Eosinophils # (Auto) 0.1, Basophils # (Auto) 0.0, Large Unclassified Cells % 1.5 , Large Unclassified Cells # 0.1, Anion Gap 11, Glomerular Filtration Rate > 60.0, Blood Urea Nitrogen 19H, Creatinine 1.22, Sodium Level 147H, Potassium Level 4.2, Chloride Level 110H, Carbon Dioxide Level 26, Calcium Level 8.9, Total Creatine Kinase 1258H, Creatine Kinase MB 14.0H, Creatine Kinase MB Relative Index 1.11, Troponin I 0.04 CBC/BMP Laboratory Tests 11/24/16 16:26 Red Blood Count 4.39, Mean Corpuscular Volume 88.8, Mean Corpuscular Hemoglobin 30.9, Mean Corpuscular Hemoglobin Concent 34.8, Red Cell Distribution Width 12.9 , Neutrophils (%) (Auto) 70.1 H, Lymphocytes (%) (Auto) 22.4 L, Monocytes (%) ( Auto) 4.4, Eosinophils (%) (Auto) 1.0, Basophils (%) (Auto) 0.7, Neutrophils # ( Auto) 4.7, Lymphocytes # (Auto) 1.5, Monocytes # (Auto) 0.3, Eosinophils # (Auto ) 0.1, Basophils # (Auto) 0.0, Calcium Level 8.9, Total Creatine Kinase 1258 H Kameron Mittal MD Nov 24, 2016 19:00
[2016-11-24] MEDS: DOCUSATE SODIUM 100 MG CAP PO SCH (22:36)
[2016-11-24] MEDS: PRAVASTATIN 20 MG TAB PO SCH (22:37)
[2016-11-24] MEDS: MIRTAZAPINE 15 MG TAB PO SCH (22:38)
[2016-11-24] MEDS: DONEPEZIL 5 MG TAB PO SCH (22:39)
[2016-11-24] MEDS: CLOPIDOGREL 75 MG TAB PO SCH (22:39)
[2016-11-25 06:00] VITALS: BP 144/87
--- NOTE | 2016-11-25 08:27 | ECGEPIP ---
Stationary ECG Study [facility] Test Date: 2016-11-24 Pat Name: NAYE RANDALL Department: Room: [place] [address] Gender: M Collateral Specialist: : [id number] Requested By: Kameron Mohan Order Number: [id number] Reading MD: Elijah Okeefe Measurements Intervals [place] Rate: 106 P: 78 MT: 138 QRS: 84 QRSD: 88 T: 38 QT: 333 QTc: 443 Interpretive Statements Best possible EKG- pt diaphoretic & restless--per data center technician Sinus tachycardia V5 and V6 missing Inferior wall AL, age indeterminate Nonspecific ST-T wave abnormalities Rate faster, vs. prior tracing of 10/08/2016 Electronically Signed On 11-25-2016 8:27:11 EDT by Elijah Okeefe
[2016-11-25] MEDS: ASPIRIN 81 MG CHEW TABLET PO SCH (10:04)
[2016-11-25] MEDS: lamoTRIgine 100MG TAB PO SCH ×2 (10:04→22:24)
[2016-11-25] MEDS: MEMANTINE 5MG TABLET (NAMENDA) PO SCH ×2 (10:04→22:23)
[2016-11-25] MEDS: CARVedilol 3.125 MG TAB PO SCH ×2 (10:07→22:25)
[2016-11-25] MEDS: DOCUSATE SODIUM 100 MG CAP PO SCH ×2 (10:13→22:24)
[2016-11-25] MEDS: DONEPEZIL 5 MG TAB PO SCH (22:23)
[2016-11-25] MEDS: MIRTAZAPINE 15 MG TAB PO SCH (22:23)
[2016-11-25] MEDS: PRAVASTATIN 20 MG TAB PO SCH (22:24)
[2016-11-25] MEDS: CLOPIDOGREL 75 MG TAB PO SCH (22:25)
[2016-11-26 06:00] VITALS: BP 136/78
[2016-11-26] MEDS: MEMANTINE 5MG TABLET (NAMENDA) PO SCH ×2 (07:57→22:13)
[2016-11-26] MEDS: lamoTRIgine 100MG TAB PO SCH ×2 (07:57→22:13)
[2016-11-26] MEDS: ASPIRIN 81 MG CHEW TABLET PO SCH (07:57)
[2016-11-26] MEDS: DOCUSATE SODIUM 100 MG CAP PO SCH ×2 (07:58→22:14)
[2016-11-26] MEDS: CARVedilol 3.125 MG TAB PO SCH ×2 (07:58→22:13)
[2016-11-26] MEDS: DONEPEZIL 5 MG TAB PO SCH (22:12)
[2016-11-26] MEDS: CLOPIDOGREL 75 MG TAB PO SCH (22:13)
[2016-11-26] MEDS: MIRTAZAPINE 15 MG TAB PO SCH (22:13)
[2016-11-26] MEDS: PRAVASTATIN 20 MG TAB PO SCH (22:14)
[2016-11-27 06:55] VITALS: BP 129/85
[2016-11-27] MEDS: ASPIRIN 81 MG CHEW TABLET PO SCH (08:14)
[2016-11-27] MEDS: MEMANTINE 5MG TABLET (NAMENDA) PO SCH ×2 (08:14→20:15)
[2016-11-27] MEDS: CARVedilol 3.125 MG TAB PO SCH ×2 (08:15→20:19)
[2016-11-27] MEDS: lamoTRIgine 100MG TAB PO SCH ×2 (08:15→20:14)
[2016-11-27] MEDS: DOCUSATE SODIUM 100 MG CAP PO SCH ×2 (08:16→20:13)
[2016-11-27] MEDS: MIRTAZAPINE 15 MG TAB PO SCH (20:14)
[2016-11-27] MEDS: CLOPIDOGREL 75 MG TAB PO SCH (20:14)
[2016-11-27] MEDS: PRAVASTATIN 20 MG TAB PO SCH (20:14)
[2016-11-27] MEDS: DONEPEZIL 5 MG TAB PO SCH (20:14)
[2016-11-28 06:00] VITALS: BP 132/83
[2016-11-28] MEDS: lamoTRIgine 100MG TAB PO SCH ×2 (10:08→21:46)
[2016-11-28] MEDS: LORazepam 2 MG/ML VIAL (J2060) IM PRN ×2 (10:08→20:38)
[2016-11-28] MEDS: DOCUSATE SODIUM 100 MG CAP PO SCH ×2 (10:08→21:00)
[2016-11-28] MEDS: MEMANTINE 5MG TABLET (NAMENDA) PO SCH ×2 (10:08→21:47)
[2016-11-28] MEDS: ASPIRIN 81 MG CHEW TABLET PO SCH (10:08)
[2016-11-28] MEDS: CARVedilol 3.125 MG TAB PO SCH ×2 (10:09→21:49)
[2016-11-28] MEDS: DONEPEZIL 5 MG TAB PO SCH (21:45)
[2016-11-28] MEDS: MIRTAZAPINE 15 MG TAB PO SCH (21:45)
[2016-11-28] MEDS: PRAVASTATIN 20 MG TAB PO SCH (21:46)
[2016-11-28] MEDS: CLOPIDOGREL 75 MG TAB PO SCH (21:47)
[2016-11-29] MEDS: lamoTRIgine 100MG TAB PO SCH ×2 (10:34→20:39)
[2016-11-29] MEDS: MEMANTINE 5MG TABLET (NAMENDA) PO SCH ×2 (10:35→20:38)
[2016-11-29] MEDS: DOCUSATE SODIUM 100 MG CAP PO SCH ×2 (10:35→20:38)
[2016-11-29] MEDS: CARVedilol 3.125 MG TAB PO SCH ×2 (10:35→20:39)
[2016-11-29] MEDS: ASPIRIN 81 MG CHEW TABLET PO SCH (10:35)
[2016-11-29] MEDS: LORazepam 2 MG/ML VIAL (J2060) IM PRN (16:52)
[2016-11-29] MEDS: CLOPIDOGREL 75 MG TAB PO SCH (20:38)
[2016-11-29] MEDS: PRAVASTATIN 20 MG TAB PO SCH (20:43)
[2016-11-29] MEDS: MIRTAZAPINE 15 MG TAB PO SCH (20:45)
[2016-11-29] MEDS: DONEPEZIL 5 MG TAB PO SCH (20:46)
[2016-11-30] MEDS: diphenhydrAMINE 25 MG CAP PO PRN (01:15)
[2016-11-30] MEDS: CARVedilol 3.125 MG TAB PO SCH ×2 (09:00→21:06)
[2016-11-30] MEDS: DOCUSATE SODIUM 100 MG CAP PO SCH ×3 (10:09→21:17)
[2016-11-30] MEDS: MEMANTINE 5MG TABLET (NAMENDA) PO SCH ×2 (10:10→21:06)
[2016-11-30] MEDS: ASPIRIN 81 MG CHEW TABLET PO SCH (10:11)
[2016-11-30] MEDS: MIRALAX *UNIT DOSE* 17GM PACKET PO PRN (10:26)
[2016-11-30] MEDS: lamoTRIgine 100MG TAB PO SCH ×2 (10:26→21:06)
--- NOTE | 2016-11-30 13:05 | IPNPDOC ---
Subjective Date Seen The patient was seen on 11/30/16. Subjective Chief Complaint/HPI The patient is a 60-year-old male admitted with a reason for visit of MHE. Events since last encounter No new issues per nursing Constitutional: Denies: Chills, Fever Pulmonary: Denies: Dyspnea, Cough Cardiovascular: Denies: Chest Pain Gastrointestinal: Denies: Nausea, Vomiting, Abdominal Pain, Diarrhea, Constipation (+ BM yesterday) Objective Physical Examination General Exam: Positive: No Acute Distress, Negative: Alert (sleeping, difficult to arouse, but does awaken and tell me that he is right here) Chest Exam: Positive: Clear to auscultation, Normal air movement Heart Exam: Positive: Rate Normal, Regular Rhythm Abdomen Exam: Positive: Normal bowel sounds, Soft, Negative: Tenderness Assessment /Plan Problems (1) Lewy body dementia with behavioral disturbance Status: Chronic Problem Text: 11/30 - stable with no new issues 11/24: after passing large BM (nonex8 days) he was calmer, diaphoresis resolved and he looked comfortable. 11/16/16: Stabilized behaviors. improved sleep patterns with Benadryl at HS. Haldol stopped d/t MS changes. 11/10 - His behavior is labile, but mostly stable on current regimen. 10/27 - He has been started on Haldol daily with prn dosing as well due to episodes of severe agitation he seem sto be tolerating this and is awake ans walking in room today without agitation. 10/19/17. seroquel stopped, will increase abilify as noted below. 10/18/16 more ataxic with seroquel 100 so dose reduced to 50. If behavior not adequately controlled with 50 then will stop this agent and increase abilify to 5mg . 10/17/16: add on Seroquel 100 mg po daily at 1800. 10/12 -- per report, fewer behavioral problems today. Patient does not want to remain clothed, but was not violent. Continue current medication regimen. 10/11 -- as patient became fairly sedated after Haldol last night, will switch antipsychotic to PO Haldol at a lower dose. Worsening behaviors at home lead to an unsafe home situation. Patient likely will require placement. Currently has Ativan ordered prn. (2) Hospital admission due to social situation Status: Acute Problem Text: Admitted for unsafe home situation. (3) Coronary artery disease Status: Chronic Problem Text: Continue home statin/Plavix/beta matt. (4) Lower extremity edema Status: Acute Problem Text: 11/10 - mild chronic edema - he is not likely to wear support stockings. Edema is dependent b/c he spends most of the day walking int he room Could give scheduled Diuretic if patient seems bothered by the edema or if worsens Plan/VTE VTE Prophylaxis Ordered?: Yes Plan Diagnostics: Check Labs, Repeat EKG Family Medicine Attending Note: I saw and examined Mr. Gomes this morning; I discussed his care with EDWIGE Sherman and I agree with her note as documented. Per review of PFS notes, we are waiting for his to complete documentation so that he can be placed. (KES) VS, I&O, 24H, Fishbone Vital Signs/I&O Vital Signs Date Time Temp Pulse Resp B/P (MAP) Pulse Ox O2 Delivery O2 Flow Rate FiO2 11/30/16 09:00 84 128/72 11/29/16 20:38 Room Air 11/28/16 06:00 97.6 15 98 I&O- Last 24 Hours up to 6 AM 12/01/16 06:00 Intake Total 240 ml Output Total 0 ml Balance 240 ml JOVANNY DIEGO PA-C Nov 30, 2016 13:05 ELIEZER RIVERS MD Nov 30, 2016 14:00
[2016-11-30 16:34] LABS: ALBUMIN 3.6 GM/DL (3.2-5.2); ALBUMIN/GLOBULIN RATIO 1.09 (1.00-1.93); ALKALINE PHOSPHATASE 100 U/L (45-117); ALT/SGPT 25 U/L (12-78); ANION GAP 7 MEQ/L (8-16); AST/SGOT 35 U/L (15-37); BILIRUBIN,TOTAL 0.2 MG/DL (0.2-1.0); BLOOD UREA NITROGEN 16 MG/DL (7-18); CARBON DIOXIDE LEVEL 27 MEQ/L (21-32); CHLORIDE LEVEL 107 MEQ/L (98-107); CREATININE FOR GFR 0.89 MG/DL (0.70-1.30); GLOMERULAR FILTRATION RATE > 60.0 (>49); GLUCOSE, FASTING 111 MG/DL (80-110); POTASSIUM SERUM 4.1 MEQ/L (3.5-5.1); SODIUM LEVEL 141 MEQ/L (136-145); TOTAL PROTEIN 6.9 GM/DL (6.4-8.2)
[2016-11-30] MEDS: PRAVASTATIN 20 MG TAB PO SCH (21:06)
[2016-11-30] MEDS: CLOPIDOGREL 75 MG TAB PO SCH (21:06)
[2016-11-30] MEDS: DONEPEZIL 5 MG TAB PO SCH (21:06)
[2016-11-30] MEDS: MIRTAZAPINE 15 MG TAB PO SCH (21:06)
[2016-12-01] MEDS: ASPIRIN 81 MG CHEW TABLET PO SCH (09:00)
[2016-12-01] MEDS: CARVedilol 3.125 MG TAB PO SCH ×2 (09:00→21:31)
[2016-12-01] MEDS: MEMANTINE 5MG TABLET (NAMENDA) PO SCH ×2 (09:00→21:30)
[2016-12-01] MEDS: DOCUSATE SODIUM 100 MG CAP PO SCH ×2 (09:00→21:30)
[2016-12-01] MEDS: lamoTRIgine 100MG TAB PO SCH ×2 (09:00→21:31)
[2016-12-01] MEDS: LORazepam 2 MG/ML VIAL (J2060) IM PRN (13:02)
[2016-12-01] MEDS: MIRTAZAPINE 15 MG TAB PO SCH (21:30)
[2016-12-01] MEDS: PRAVASTATIN 20 MG TAB PO SCH (21:30)
[2016-12-01] MEDS: diphenhydrAMINE 25 MG CAP PO PRN (21:31)
[2016-12-01] MEDS: CLOPIDOGREL 75 MG TAB PO SCH (21:31)
[2016-12-01] MEDS: DONEPEZIL 5 MG TAB PO SCH (21:31)
[2016-12-02 06:00] VITALS: BP 112/65
[2016-12-02] MEDS: DOCUSATE SODIUM 100 MG CAP PO SCH ×3 (09:00→20:24)
[2016-12-02] MEDS: MEMANTINE 5MG TABLET (NAMENDA) PO SCH ×2 (09:49→20:24)
[2016-12-02] MEDS: ASPIRIN 81 MG CHEW TABLET PO SCH (09:50)
[2016-12-02] MEDS: lamoTRIgine 100MG TAB PO SCH ×2 (09:50→20:22)
[2016-12-02] MEDS: CARVedilol 3.125 MG TAB PO SCH ×2 (09:54→20:23)
[2016-12-02] MEDS: PRAVASTATIN 20 MG TAB PO SCH (20:22)
[2016-12-02] MEDS: DONEPEZIL 5 MG TAB PO SCH (20:22)
[2016-12-02] MEDS: MIRTAZAPINE 15 MG TAB PO SCH (20:22)
[2016-12-02] MEDS: CLOPIDOGREL 75 MG TAB PO SCH (20:25)
[2016-12-03 06:00] VITALS: BP 140/89
[2016-12-03] MEDS: MEMANTINE 5MG TABLET (NAMENDA) PO SCH ×2 (08:43→20:39)
[2016-12-03] MEDS: lamoTRIgine 100MG TAB PO SCH ×2 (08:43→20:39)
[2016-12-03] MEDS: ASPIRIN 81 MG CHEW TABLET PO SCH (08:43)
[2016-12-03] MEDS: DOCUSATE SODIUM 100 MG CAP PO SCH ×2 (08:43→20:38)
[2016-12-03] MEDS: CARVedilol 3.125 MG TAB PO SCH ×2 (08:44→20:40)
[2016-12-03] MEDS ORDERED: SODIUM CHLORIDE 0.9% NASAL GEL 15MG (AYR) PRN (14:30)
[2016-12-03] MEDS: LORazepam 2 MG TAB PO PRN ×2 (14:59→20:38)
[2016-12-03] MEDS: MIRTAZAPINE 15 MG TAB PO SCH (20:38)
[2016-12-03] MEDS: DONEPEZIL 5 MG TAB PO SCH (20:38)
[2016-12-03] MEDS: PRAVASTATIN 20 MG TAB PO SCH (20:38)
[2016-12-03] MEDS: diphenhydrAMINE 25 MG CAP PO PRN (20:39)
[2016-12-03] MEDS: CLOPIDOGREL 75 MG TAB PO SCH (20:39)
[2016-12-04 06:00] VITALS: BP 133/84
[2016-12-04] MEDS: CARVedilol 3.125 MG TAB PO SCH ×2 (09:00→20:19)
[2016-12-04] MEDS: lamoTRIgine 100MG TAB PO SCH ×2 (09:44→20:20)
[2016-12-04] MEDS: DOCUSATE SODIUM 100 MG CAP PO SCH ×2 (09:44→20:19)
[2016-12-04] MEDS: MEMANTINE 5MG TABLET (NAMENDA) PO SCH ×2 (09:44→20:19)
[2016-12-04] MEDS: ASPIRIN 81 MG CHEW TABLET PO SCH (09:44)
--- NOTE | 2016-12-04 15:57 | IPN ---
DATE: 12/04/2016 I was asked to see Toni about concerns about his feet being blue and dusky. He appears to have vasospasm of extremities probably from his beta matt. I was called one night international marketing specialist because one of his fingers was blue and by the next day it was back to normal. He does have some dependent edema and when he stands his feet will become more dusky. On exam his vitals are stable. He has a palpable distal pulse, but dorsalis pedis and posterior tibia of both feet have some venous stasis present. The feet are cool. His fingers are normal bilaterally today. IMPRESSION: Intermittent vasospasm probably from his Coreg. He is not suffering from significant peripheral arterial disease. He has a palpable pulse and I do not think that this vasospasm is causing him any discomfort, we will continue with this beta matt for now.
[2016-12-04] MEDS: MIRTAZAPINE 15 MG TAB PO SCH (20:18)
[2016-12-04] MEDS: diphenhydrAMINE 25 MG CAP PO PRN (20:19)
[2016-12-04] MEDS: CLOPIDOGREL 75 MG TAB PO SCH (20:20)
[2016-12-04] MEDS: PRAVASTATIN 20 MG TAB PO SCH (20:20)
[2016-12-04] MEDS: DONEPEZIL 5 MG TAB PO SCH (20:20)
[2016-12-04] MEDS: LORazepam 2 MG TAB PO PRN (20:20)
[2016-12-05 06:00] VITALS: BP 127/69
[2016-12-05] MEDS: ASPIRIN 81 MG CHEW TABLET PO SCH (11:20)
[2016-12-05] MEDS: DOCUSATE SODIUM 100 MG CAP PO SCH ×2 (11:22→21:00)
[2016-12-05] MEDS: CARVedilol 3.125 MG TAB PO SCH ×2 (11:22→21:00)
[2016-12-05] MEDS: MEMANTINE 5MG TABLET (NAMENDA) PO SCH ×2 (11:23→21:00)
[2016-12-05] MEDS: lamoTRIgine 100MG TAB PO SCH ×2 (11:23→21:00)
[2016-12-05] MEDS: MIRTAZAPINE 15 MG TAB PO SCH (20:59)
[2016-12-05] MEDS: CLOPIDOGREL 75 MG TAB PO SCH (20:59)
[2016-12-05] MEDS: PRAVASTATIN 20 MG TAB PO SCH (20:59)
[2016-12-05] MEDS: DONEPEZIL 5 MG TAB PO SCH (21:01)
[2016-12-06 06:00] VITALS: BP 141/79
[2016-12-06] MEDS: MEMANTINE 5MG TABLET (NAMENDA) PO SCH ×2 (10:13→21:07)
[2016-12-06] MEDS: CARVedilol 3.125 MG TAB PO SCH ×2 (10:13→21:06)
[2016-12-06] MEDS: ASPIRIN 81 MG CHEW TABLET PO SCH (10:14)
[2016-12-06] MEDS: lamoTRIgine 100MG TAB PO SCH ×2 (10:14→21:07)
[2016-12-06] MEDS: DOCUSATE SODIUM 100 MG CAP PO SCH ×2 (10:14→21:06)
[2016-12-06] MEDS: LORazepam 2 MG TAB PO PRN (21:06)
[2016-12-06] MEDS: PRAVASTATIN 20 MG TAB PO SCH (21:06)
[2016-12-06] MEDS: DONEPEZIL 5 MG TAB PO SCH (21:07)
[2016-12-06] MEDS: diphenhydrAMINE 25 MG CAP PO PRN (21:07)
[2016-12-06] MEDS: MIRTAZAPINE 15 MG TAB PO SCH (21:07)
[2016-12-06] MEDS: CLOPIDOGREL 75 MG TAB PO SCH (21:07)
[2016-12-07 06:00] VITALS: BP 147/70
[2016-12-07] MEDS: ASPIRIN 81 MG CHEW TABLET PO SCH (09:00)
[2016-12-07] MEDS: lamoTRIgine 100MG TAB PO SCH ×2 (09:54→21:47)
[2016-12-07] MEDS: CARVedilol 3.125 MG TAB PO SCH ×2 (09:54→21:48)
[2016-12-07] MEDS: MEMANTINE 5MG TABLET (NAMENDA) PO SCH ×2 (09:55→21:44)
[2016-12-07] MEDS: DOCUSATE SODIUM 100 MG CAP PO SCH ×2 (09:55→21:49)
[2016-12-07] MEDS: DONEPEZIL 5 MG TAB PO SCH (21:43)
[2016-12-07] MEDS: PRAVASTATIN 20 MG TAB PO SCH (21:44)
[2016-12-07] MEDS: MIRTAZAPINE 15 MG TAB PO SCH (21:44)
[2016-12-07] MEDS: CLOPIDOGREL 75 MG TAB PO SCH (21:47)
[2016-12-08 04:50] VITALS: BP 143/84
[2016-12-08] MEDS: CARVedilol 3.125 MG TAB PO SCH ×2 (08:54→20:29)
[2016-12-08] MEDS: DOCUSATE SODIUM 100 MG CAP PO SCH ×2 (08:54→20:29)
[2016-12-08] MEDS: ASPIRIN 81 MG CHEW TABLET PO SCH (08:54)
[2016-12-08] MEDS: lamoTRIgine 100MG TAB PO SCH ×2 (08:55→20:28)
[2016-12-08] MEDS: MEMANTINE 5MG TABLET (NAMENDA) PO SCH ×2 (08:55→20:28)
[2016-12-08] MEDS: PRAVASTATIN 20 MG TAB PO SCH (20:19)
[2016-12-08] MEDS: MIRTAZAPINE 15 MG TAB PO SCH (20:20)
[2016-12-08] MEDS: CLOPIDOGREL 75 MG TAB PO SCH (20:28)
[2016-12-08] MEDS: diphenhydrAMINE 25 MG CAP PO PRN (20:28)
[2016-12-08] MEDS: DONEPEZIL 5 MG TAB PO SCH (20:28)
[2016-12-09 06:00] VITALS: BP 144/81
[2016-12-09] MEDS: DOCUSATE SODIUM 100 MG CAP PO SCH ×2 (10:22→21:49)
[2016-12-09] MEDS: lamoTRIgine 100MG TAB PO SCH ×2 (10:23→21:49)
[2016-12-09] MEDS: ASPIRIN 81 MG CHEW TABLET PO SCH (10:23)
[2016-12-09] MEDS: CARVedilol 3.125 MG TAB PO SCH ×2 (10:25→21:50)
[2016-12-09] MEDS: MEMANTINE 5MG TABLET (NAMENDA) PO SCH ×2 (10:25→21:49)
[2016-12-09] MEDS: MIRTAZAPINE 15 MG TAB PO SCH (21:48)
[2016-12-09] MEDS: CLOPIDOGREL 75 MG TAB PO SCH (21:49)
[2016-12-09] MEDS: PRAVASTATIN 20 MG TAB PO SCH (21:49)
[2016-12-09] MEDS: ACETAMINOPHEN TAB 650MG DOSE (2X325MG) PO PRN (21:50)
[2016-12-09] MEDS: DONEPEZIL 5 MG TAB PO SCH (21:50)
[2016-12-10 06:00] VITALS: BP 111/60
[2016-12-10] MEDS: CARVedilol 3.125 MG TAB PO SCH ×2 (10:28→22:14)
[2016-12-10] MEDS: ASPIRIN 81 MG CHEW TABLET PO SCH (10:28)
[2016-12-10] MEDS: DOCUSATE SODIUM 100 MG CAP PO SCH ×2 (10:28→21:00)
[2016-12-10] MEDS: MEMANTINE 5MG TABLET (NAMENDA) PO SCH ×2 (10:29→22:13)
[2016-12-10] MEDS: lamoTRIgine 100MG TAB PO SCH ×2 (10:29→22:13)
[2016-12-10] MEDS: LORazepam 2 MG/ML VIAL (J2060) IM PRN (14:39)
[2016-12-10] MEDS: PRAVASTATIN 20 MG TAB PO SCH (22:12)
[2016-12-10] MEDS: MIRTAZAPINE 15 MG TAB PO SCH (22:13)
[2016-12-10] MEDS: DONEPEZIL 5 MG TAB PO SCH (22:13)
[2016-12-10] MEDS: CLOPIDOGREL 75 MG TAB PO SCH (22:13)
[2016-12-11 06:00] VITALS: BP 138/83
[2016-12-11] MEDS: DOCUSATE SODIUM 100 MG CAP PO SCH ×2 (09:00→20:08)
[2016-12-11] MEDS: MEMANTINE 5MG TABLET (NAMENDA) PO SCH ×2 (09:00→20:08)
[2016-12-11] MEDS: lamoTRIgine 100MG TAB PO SCH ×2 (09:00→20:08)
[2016-12-11] MEDS: ASPIRIN 81 MG CHEW TABLET PO SCH (09:00)
[2016-12-11] MEDS: CARVedilol 3.125 MG TAB PO SCH ×2 (09:00→20:08)
[2016-12-11] MEDS: PRAVASTATIN 20 MG TAB PO SCH (20:08)
[2016-12-11] MEDS: MIRTAZAPINE 15 MG TAB PO SCH (20:08)
[2016-12-11] MEDS: DONEPEZIL 5 MG TAB PO SCH (20:08)
[2016-12-11] MEDS: CLOPIDOGREL 75 MG TAB PO SCH (20:08)
[2016-12-11] MEDS: ACETAMINOPHEN TAB 650MG DOSE (2X325MG) PO PRN (21:04)
[2016-12-12] MEDS: DOCUSATE SODIUM 100 MG CAP PO SCH ×2 (10:59→21:32)
[2016-12-12] MEDS: CARVedilol 3.125 MG TAB PO SCH ×2 (10:59→21:33)
[2016-12-12] MEDS: MEMANTINE 5MG TABLET (NAMENDA) PO SCH ×2 (10:59→21:33)
[2016-12-12] MEDS: lamoTRIgine 100MG TAB PO SCH ×2 (10:59→21:32)
[2016-12-12] MEDS: ASPIRIN 81 MG CHEW TABLET PO SCH (10:59)
[2016-12-12] MEDS: CLOPIDOGREL 75 MG TAB PO SCH (21:32)
[2016-12-12] MEDS: MIRTAZAPINE 15 MG TAB PO SCH (21:32)
[2016-12-12] MEDS: ACETAMINOPHEN TAB 650MG DOSE (2X325MG) PO PRN (21:32)
[2016-12-12] MEDS: DONEPEZIL 5 MG TAB PO SCH (21:33)
[2016-12-12] MEDS: PRAVASTATIN 20 MG TAB PO SCH (21:33)
[2016-12-13 06:00] VITALS: BP 121/72
[2016-12-13] MEDS: DOCUSATE SODIUM 100 MG CAP PO SCH ×2 (09:52→20:17)
[2016-12-13] MEDS: CARVedilol 3.125 MG TAB PO SCH ×2 (09:52→20:18)
[2016-12-13] MEDS: ASPIRIN 81 MG CHEW TABLET PO SCH (09:52)
[2016-12-13] MEDS: lamoTRIgine 100MG TAB PO SCH ×2 (09:52→20:17)
[2016-12-13] MEDS: MEMANTINE 5MG TABLET (NAMENDA) PO SCH ×2 (09:52→20:17)
[2016-12-13] MEDS: PRAVASTATIN 20 MG TAB PO SCH (20:17)
[2016-12-13] MEDS: MIRTAZAPINE 15 MG TAB PO SCH (20:17)
[2016-12-13] MEDS: DONEPEZIL 5 MG TAB PO SCH (20:17)
[2016-12-13] MEDS: CLOPIDOGREL 75 MG TAB PO SCH (20:17)
[2016-12-14] MEDS ORDERED: DIPH25CA PO (07:42)
[2016-12-14] MEDS ORDERED: ATIV2INJ2 IM (07:42)
[2016-12-14] MEDS ORDERED: ARIP5TA PO (07:42)
[2016-12-14] MEDS ORDERED: COLA100C5 PO (07:42)
[2016-12-14] MEDS ORDERED: ARIC1TAB PO (07:42)
[2016-12-14] MEDS ORDERED: DIPH50VL IM (07:42)
[2016-12-14] MEDS ORDERED: PEG1POW PO (07:42)
[2016-12-14] MEDS ORDERED: LORA2TA PO (07:42)
[2016-12-14] MEDS ORDERED: MAPA325T3 PO (07:42)
[2016-12-14] MEDS ORDERED: SODIGEL (07:42)
[2016-12-14 10:41] VITALS: BP 123/78
[2016-12-14] MEDS: MEMANTINE 5MG TABLET (NAMENDA) PO SCH (10:41)
[2016-12-14] MEDS: ASPIRIN 81 MG CHEW TABLET PO SCH (10:41)
[2016-12-14] MEDS: lamoTRIgine 100MG TAB PO SCH (10:41)
[2016-12-14] MEDS: CARVedilol 3.125 MG TAB PO SCH (10:41)
[2016-12-14] MEDS: DOCUSATE SODIUM 100 MG CAP PO SCH (10:41)
[2016-12-14] MEDS ORDERED: INFLUENZA QUADRIVALENT PF VACCINE 0.5ML SYRINGE (90686) IM ONE (12:15)
--- NOTE | 2016-12-14 12:24 | DSES ---
DATE OF ADMISSION: 10/08/2016 DATE OF DISCHARGE: 12/14/2016 PRIMARY CARE PROVIDER: Dr. Aureliano Benavides ATTENDING PHYSICIAN: Dr. Leonila Gongora HISTORY OF PRESENT ILLNESS: This is a 61-year-old gentleman with a past medical history of known Lewy body dementia, had been treated by [facility] neurology and primary care. He was brought into the emergency room by his due to worsening condition and concerning violent outbreaks. The patient's symptoms had progressively gotten worse over 6 months prior to presentation and at the time of presentation to the emergency room, it was felt the patient was a danger to himself and most likely to his in his current environment. The was subsequently admitted to the family medicine service. HOSPITAL COURSE: The patient's routine medications were continued for his past medical history of coronary artery disease. The patient continued to show aggressive behaviors. Psychiatry evaluation was obtained to assist with medical management of patient's aggressive behaviors. The patient has had a one-to-one sitter throughout hospitalization as he has been housed in the medical surgical floor with no availability for a locked unit. The patient, on multiple times during the first 6 weeks of his hospitalization did need the assistance of Haldol or IM lorazepam to help with his violent behaviors which were mostly at night. However patient has had significant improvement with adjustment of his medications and the use of IM Ativan has been sporadic at this point. Most recent labs on 11/24/2016 showed an hemoglobin and hematocrit of 13 and 39. Most recent chemistry on 11/30/2016 showed normal electrolytes and normal renal function. Urine culture was obtained on admission and proved negative. Imaging includes PET/CT which showed age-appropriate cerebellum and cerebral atrophy, small chronic peripheral vascular disease and no evidence of acute intracranial pathology. Chest x-ray was obtained on 10/08/2016 and showed dextrorotary curvature of the spine without acute cardiopulmonary change. 11/12/2016 CT of the spine was obtained secondary to perceived cervical spine pain. It was noted the patient had reversal of normal lordosis and mild to moderate degenerative changes with some mild moderate early anterior spurring on C4-5, C5-6 levels. However, the patient did have a patent neural foramina. EKG was obtained on 11/24/2016, which proved sinus tachycardia unchanged compared to his prior tracing on 10/08/2016. CONSULTATIONS: Psychiatry as already stated. Most recent medical evaluation by primary care provider on 12/04/2016 with some concerns regarding patient's feet having a blue or dusky appearance.. This per the primary care provider, states this is unchanged and is a chronic condition. Thought that he probably has an intermittent vasospasm from his Coreg. No significant peripheral artery disease noted and palpable pulses are appreciated. Today, the patient is resting comfortably. Is cooperative with exam. Vital signs are stable. He is afebrile. HEENT: Neck is supple without lymphadenopathy or jugular venous distention. Cardiovascular: Heart rate and rhythm regular. Pulmonary: Lungs are clear to auscultation bilaterally. Abdomen is soft and nontender. Last bowel movement 12/12/2016. ASSESSMENT/DISCHARGE DIAGNOSIS: Lewy body dementia with aggressive features. SECONDARY DIAGNOSES: 1. History of posterior myocardial infarction 02/12/2011. 2. Coronary artery disease. 3. Adenocarcinoma of the prostate with a Houston score of 5% under active surveillance with urology. The patient will need to be followed as an outpatient. 4. Hypercholesterolemia. 5. Chronic low back pain. 6. Generative disc disease. 7. Depression and anxiety. PLAN: The patient will be discharged [facility]. The patient will need followup with urology annually to follow with his prostatic carcinoma. He follows with Dr. Mark locally here at [facility]. Diet: 2 gram sodium. Activity as tolerated. MEDICATIONS: - acetaminophen 325 mg tablet two by mouth every 6 hours as needed for mild pain. - Aripiprazole 5 mg tablets one by mouth daily - diphenhydramine ACL 15 mg/mL 25 mg IM every 4 hours as needed for agitation - diphenhydramine 25 mg capsule 25 mg by mouth nightly as needed insomnia - docusate sodium 100 mg capsule 100 mg by mouth twice a day - donepezil 5 mg tablets two by mouth nightly -lorazepam 2 mg tablet, 2 mg by mouth every 4 hours as needed for anxiety or agitation with a maximum daily dose of 8. - lorazepam 2 mg/mL, he may have 2 mg IM every 4 hours as needed for anxiety or agitation with a maximum daily dose of 2 mg. - polyethylene glycol one packet as needed daily as needed constipation. - sodium chloride nasal gel applied to nostrils every 4 hours a needed for nasal dryness. - aspirin 81 mg chewable by mouth daily - carvedilol 3.125 mg tablet half tab by mouth twice a day - Plavix 75 mg by mouth nightly - Lamictal 100 mg by mouth twice a day - Namenda 10 mg by mouth twice a day - mirtazapine 45 mg by mouth nightly - multivitamin one tablet by mouth daily - pravastatin 40 mg by mouth nightly The patient is discharged in stable and satisfactory condition. Family is aware of discharge and is agreeable to placement in this facility. LILA
[2016-12-14] MEDS: diphenhydrAMINE 25 MG CAP PO PRN (12:35)
[2016-12-14] MEDS: LORazepam 2 MG TAB PO PRN (12:35)
== END 2016-12-14 13:23 | DRG 57 ==
LOC: M ED 15:22 → M ED INP 19:53 → M MSPAV 23:45
PROVIDERS: ADMIT Family Medicine; ATTEND Family Medicine
DX: G31.83 Neurocognitive disorder with Lewy bodies (principal); F02.81 Dementia in other diseases classified elsewhere, unspecified severity, with behavioral disturbance; I25.2 Old myocardial infarction; I25.10 Atherosclerotic heart disease of native coronary artery without angina pectoris; E78.00 Pure hypercholesterolemia, unspecified; R27.0 Ataxia, unspecified; M54.5 Low back pain; F32.9 Major depressive disorder, single episode, unspecified; R60.0 Localized edema; K59.00 Constipation, unspecified; Z66 Do not resuscitate; F41.9 Anxiety disorder, unspecified; Z98.61 Coronary angioplasty status; Z85.46 Personal history of malignant neoplasm of prostate; Z87.891 Personal history of nicotine dependence; Z79.02 Long term (current) use of antithrombotics/antiplatelets; Z79.82 Long term (current) use of aspirin; Z79.899 Other long term (current) drug therapy